=== PATIENT | female | born 1970 | race Asian ===

== ENCOUNTER 2019-06-21 12:57 | Outpatient (CLI) | payer OTHER, SELFPAY ==
[2019-06-21 15:02] LABS: Basophils Percent Auto 0.6 % (0.2-1.2); Eosinophils Absolute Auto 1.3 K/mm3 (0-0.3); Eosinophils Percent Auto 18.3 % (0-4.4); Hematocrit 37.9 % (37.0-47.0); Hemoglobin 11.8 g/dL (12.0-15.0); Immature Granulocyte Absolute 0.01 K/mm3 (0.00-0.031); Immature Granulocyte Percent A 0.1 % (0-0.5); Lymphocytes Absolute Auto 2.55 K/mm3 (0.9-3.2); Lymphocytes Percent Auto 37.1 % (18.3-44.2); Mean Corpuscular HGB Conc 31.1 g/dl (32-36); Mean Corpuscular Hemoglobin 26.1 pg (26-34); Mean Corpuscular Volume 83.8 fl (80-100); Mean Platelet Volume 11.1 fl (7.4-10.4); Monocytes Absolute Auto 0.5 K/mm3 (0.1-0.6); Monocytes Percent Auto 6.6 % (2.6-8.5); Neutrophils Absolute Auto 2.6 K/mm3 (1.3-6.7); Neutrophils Percent Auto 37.3 % (45.5-73.1); Platelet Count Result 328 k/mm3 (150-375); Red Blood Count 4.52 M/mm3 (4.2-5.4); Red Cell Distribution Width 15.8 % (11.5-14.5); White Blood Count 6.9 K/mm3 (4.5-10.0)
[2019-06-25 03:29] LABS: Immunoglobulin E 216 kU/L (<=114)
== END 2019-06-21 12:58 | disposition home or self-care (01) ==
LOC: ANHLAB 12:59
PROVIDERS: PCP Family Medicine; Visit Provider Allergy & Immunology
DX: J45.51 Severe persistent asthma with (acute) exacerbation (principal)
CPT/HCPCS: 36415; 82785; 85025; 86003

== ENCOUNTER → 2019-07-30 16:20 | Outpatient (CLI) | payer OTHER, SELFPAY ==
--- NOTE | ~2019-07-30 | MM_ITS ---
EXAMINATION: MM screening [facility] BI w ryanne HISTORY: Screening mammogram TECHNIQUE: Craniocaudal and mediolateral oblique 3-D tomosynthesis images were obtained and synthetic 2-D images were generated. CAD analysis was submitted and interpreted. COMPARISON: Comparison to multiple prior studies sequentially, with oldest reviewed study dated 04/30. BREAST PARENCHYMAL COMPOSITION: There are scattered areas of fibroglandular density. FINDINGS: There is no evidence of suspicious mass, calcification, or architectural distortion to sugg est malignancy in either breast. There has been no suspicious interval change. IMPRESSION: 1. No mammographic evidence of malignancy. 2. Recommend routine screening mammography in one year. BI-RADS Category 1: Negative Reviewed, dictated and finalized at location A.
== END ==
PROVIDERS: PCP Family Medicine Adolescent Medicine; Visit Provider Nurse Practitioner
DX: Z12.31 Encounter for screening mammogram for malignant neoplasm of breast (principal)
CPT/HCPCS: 77063; 77067

== ENCOUNTER 2020-04-07 08:02 | Outpatient (CLI) | payer OTHER, SELFPAY ==
[2020-04-07 08:25] LABS: Basophils Percent Auto 0.4 % (0.2-1.2); Eosinophils Absolute Auto 0.1 K/mm3 (0-0.3); Eosinophils Percent Auto 1.6 % (0-4.4); Hematocrit 38.1 % (37.0-47.0); Hemoglobin 12.1 g/dL (12.0-15.0); Immature Granulocyte Absolute 0.03 K/mm3 (0.00-0.031); Immature Granulocyte Percent A 0.5 % (0-0.5); Lymphocytes Absolute Auto 2.79 K/mm3 (0.9-3.2); Lymphocytes Percent Auto 48.9 % (18.3-44.2); Mean Corpuscular HGB Conc 31.8 g/dl (32-36); Mean Corpuscular Hemoglobin 26.2 pg (26-34); Mean Corpuscular Volume 82.5 fl (80-100); Mean Platelet Volume 10.2 fl (7.4-10.4); Monocytes Absolute Auto 0.4 K/mm3 (0.1-0.6); Monocytes Percent Auto 7.2 % (2.6-8.5); Neutrophils Absolute Auto 2.4 K/mm3 (1.3-6.7); Neutrophils Percent Auto 41.4 % (45.5-73.1); Platelet Count Result 298 k/mm3 (150-375); Red Blood Count 4.62 M/mm3 (4.2-5.4); Red Cell Distribution Width 15.3 % (11.5-14.5); White Blood Count 5.7 K/mm3 (4.5-10.0)
[2020-04-07 08:29] LABS: Hemoglobin A1C 5.5 % (<5.7)
[2020-04-07 08:34] LABS: Alanine Aminotransferase 147 U/L (4-35); Albumin Level 4.5 g/dL (3.5-5.1); Alkaline Phosphatase 91 U/L (38-126); Anion Gap 9 mmol/L (8-16); Aspartate Amino Transferase 96 U/L (14-36); Bilirubin,Total 0.5 mg/dL (0.2-1.3); Blood Urea Nitrogen 17 mg/dL (7-17); Calcium 9.5 mg/dL (8.4-10.2); Carbon Dioxide 32 mmol/L (22-30); Chloride 100 mmol/L (98-107); Cholesterol 241 mg/dL (0-200); Estimated Glomerular Filt Rate > 60; Glucose 102 mg/dL (65-105); HDL Direct 51 mg/dL; Potassium 4.2 mmol/L (3.4-5.0); Sodium 141 mmol/L (137-145); Triglycerides 128 mg/dL (<150)
[2020-04-07 08:45] LABS: LDL Cholesterol Direct 172 mg/dL
== END 2020-04-07 08:03 | disposition home or self-care (01) ==
PROVIDERS: PCP Family Medicine; Visit Provider Physician Assistant
DX: Z00.00 Encounter for general adult medical examination without abnormal findings (principal); E78.5 Hyperlipidemia, unspecified; R73.01 Impaired fasting glucose
CPT/HCPCS: 36415; 80053; 80061; 83036; 84443; 85025

== ENCOUNTER 2020-04-21 09:10 | Outpatient (CLI) | payer OTHER, SELFPAY ==
--- NOTE | ~2020-04-21 | US_ITS ---
EXAMINATION: US right upper quadrant DATE: 04/21/2020 09:48 INDICATION: Hepatic steatosis. TECHNIQUE: Multiple grayscale and Doppler ultrasound images of the abdomen were obtained. COMPARISON: Abdomen ultrasound 03/06/2017 FINDINGS: The visualized portions of the head and body of the pancreas are normal. There is diffuse h epatic steatosis. There is normal flow in main portal vein. The gallbladder is normal in size. No gal lstones or gallbladder wall thickening. There was no sonographic Gong sign. The common duct is norm al and measures 3 mm. IMPRESSION: 1. Diffuse hepatic steatosis. Reviewed, dictated and finalized at location B. R CONE GRADER
--- NOTE | ~2020-04-21 | XR_ITS ---
EXAMINATION: XR knee RT 2V DATE: 04/21/2020 09:54 INDICATION: Right knee pain. TECHNIQUE: 2 views of right knee were obtained. COMPARISON: None. FINDINGS: Bone alignment is normal. No fracture. There is mild osteoarthritis of medial and patellofe moral compartments characterized by tiny marginal osteophytes. No knee joint effusion. IMPRESSION: 1. Mild right knee osteoarthritis. Reviewed, dictated and finalized at location B. EL PLATER
--- NOTE | ~2020-04-21 | XR_ITS ---
EXAMINATION: XR knee LT 2V DATE: 04/21/2020 09:54 INDICATION: Left knee pain. TECHNIQUE: 2 views of left knee were obtained. COMPARISON: None. FINDINGS: Bone alignment is normal. No fracture. There is mild osteoarthritis of lateral and patellof emoral compartments characterized by tiny marginal osteophytes. No knee joint effusion. IMPRESSION: 1. Mild left knee osteoarthritis. Reviewed, dictated and finalized at location B. CONSULTANT
== END 2020-04-21 09:11 | disposition home or self-care (01) ==
PROVIDERS: PCP Family Medicine; Visit Provider Family Medicine
DX: K76.0 Fatty (change of) liver, not elsewhere classified (principal); M17.0 Bilateral primary osteoarthritis of knee
CPT/HCPCS: 73560; 76705

== ENCOUNTER 2020-06-09 09:00 | Outpatient (RCR) | payer OTHER, SELFPAY ==
--- NOTE | 2020-05-11 15:19 | PTOPEVAL ---
PHYSICAL THERAPY EVALUATION AND PLAN OF CARE Thank you for referring Reji Malone to [facility].? The patient is scheduled to be seen for therapy? 1-2x/week for 4 weeks. Please review, sign, date and return this plan of care CT. I agree with and certify that the following plan of care is medically necessary. Referring Physician Date Attending Provider: JCARLOS Lai Evaluation Outpatient Past Medical History Cardiovascular History Hx Hypercholesterolemia Yes Respiratory History Hx Asthma Yes Diagnosis left shoulder pain Onset several months ago Subjective Information Left shoulder pain for several Query Text:As Reported By Patient/ months that started as a dull Family pain and worsened over time. She did have a cortisone injection that has helped with the symptoms significantly. Reports that the main pain is near deltoid insertion and a little posterior, but the shoulder and up to the neck with get stiff throughout the day. Prior Level of Function Activity Level (Last 3 Months) Hand Dominance Right Self Report Pain Assessment Left Shoulder(s) Reported Pain Level 2 Pain Description Aching Pain Score Pain Score 2: Self Report Interventions Used Interventions Used By Clinicians Exercise,Heat Pain Relief Interventions Used By Medication Patient Upper Extremity Range of Motion Scapular/ Shoulder Range of Motion Left Reason Not Measured WNL/Right Shoulder Flexion - Active 150 Shoulder Abduction - Active 145 Shoulder Medial Rotation - Active T12 Query Text:Reach Behind the Back Scapular/Shoulder Range of Motion describes a tightness through Comments the periscapular muscles with ROM Upper Extremity Muscle Strength Testing Scapular/Shoulder Left Scapular Retraction - Middle Trapezius 3 Fair Scapular Retraction - Lower Trapezius 3 Fair Shoulder Flexion Strength 4 Good Shoulder Abduction Strength 4 Good Shoulder Medial Rotation Strength 4+ Good + Shoulder Lateral Rotation Strength 4+ Good + Posture Posture Sitting Position Thoracic Spine Posture Increased Kyphosis Lumbar Spine Posture Neutral Shoulder Posture (L) Rounded,(R) Rounded,(L) Forward,(R) Forward Scapula Posture (L) Protracted,(R) Protracted Palpation hypersensitivity noted to left upper trapezius,
--- NOTE | 2020-06-09 09:23 | PTOPEVAL ---
PHYSICAL THERAPY DISCHARGE NOTE Thank you for referring Reji Malone to [facility].? Please review, sign, date and return this plan of care CT. I agree with and certify that the following plan of care is medically necessary. Referring Physician Date Attending Provider: JCARLOS Lai Discharge Diagnosis left shoulder pain Onset several months ago Subjective Information Reports she is feeling really Query Text:As Reported By Patient/ good over the last several Family weeks. Reporting no pain. Sleeping well. Pain Score Pain Score 0: Self Report Interventions Used Interventions Used By Clinicians Exercise,Heat Pain Relief Interventions Used By Exercise Patient Upper Extremity Range of Motion Scapular/ Shoulder Range of Motion Left Reason Not Measured WNL/Right Shoulder Flexion - Active 160 Shoulder Abduction - Active 162 Shoulder Medial Rotation - Active T6 Shoulder External rotation - Active 86 Upper Extremity Muscle Strength Testing Scapular/Shoulder Left Scapular Retraction - Middle Trapezius 4- Good - Scapular Retraction - Lower Trapezius 4- Good - Shoulder Flexion Strength 5 Normal Shoulder Abduction Strength 5 Normal Shoulder Medial Rotation Strength 5 Normal Shoulder Lateral Rotation Strength 5 Normal Posture Thoracic Spine Posture Increased Kyphosis Lumbar Spine Posture Neutral Shoulder Posture Neutral Scapula Posture (L) Neutral,(R) Neutral PT Clinical Summary Reji is a 49 yo female presenting to outpatient physical therapy treated for left shoulder pain consistent with tendonitis. She demonstrates normal strength and ROM today and is consistent with HEP. I recommend discharge from PT at this time. PT Services Indicated No Rehabilitation Potential Excellent Patient/Caregiver's Personal Goals for decrease pain Rehabilitation Potential Barriers to Goal Achievements None Support Requirements For Optimal None [place] Patient/Caregiver Informed of Benefits/ Yes Risks of Rehabilitation Patient/Caregiver Participated in Plan Yes of Care Patient/Caregiver Agreed with Problem Yes List/POC/Goals
== END 2020-06-09 10:29 | disposition home or self-care (01) ==
LOC: ANHPT 09:00
PROVIDERS: PCP Family Medicine; Visit Provider Physician Assistant Surgical
DX: M25.512 Pain in left shoulder (principal)
CPT/HCPCS: 97110; 97140; 97161

== ENCOUNTER 2020-07-15 13:36 | Outpatient (CLI) | payer OTHER, SELFPAY ==
--- NOTE | 2020-07-16 17:04 | P.PCNPFT_ITS ---
PFT Interpretation This is a pulmonary function test with pre and post-bronchodilator spirometry, plethysmography and diffusing capacity. The test was performed and results interpreted in accordance with the 2019 and 2005 ATS/ERS Task Force guidelines respectively using the Global Lung Function Initiative-2012 reference equations. Quality of the pre bronchodilator spi rometry maneuver was Grade A and post bronchodilator spirometry maneuver was Grade A. Findings: Spirometry: The contour of the inspiratory and expiratory flow tracing are normal. The pre bronchodilator FVC is 2.41 L, 72% predicted. The pre bronchodilator FEV1 is 1.79 L, 66% predicted. The FEV1: FVC ratio 74%. The post bronchodilator FVC is 2.42 L, representing no change. The post bronchodi lator FEV1 is 1.86 L, representing a 4% increase. Plethysmography: The total lung capacity is 3.65 L, 75% predicted. The functional residual capacity is 1.62 L, 59% predicted. The residual volume is 1.19 L, 69% predicted. Diffusing capacity: The absolute diffusion capacity is 11.1, 50% predicted. The diffusing capacity corrected for alveolar volume is 4.82, 103% predicted. Impression: There is a moderately restrictive ventilatory abnormality. The spirometry is normal without evidence of an obstructive abnormality. There is no significant improvement after inhaling a single dose of albuterol. The absolute diffusing capacity is moderately decreased and normalizes when corrected for alveolar volume. There are no prior studies for comparison
== END 2020-07-15 13:37 | disposition home or self-care (01) ==
PROVIDERS: PCP Family Medicine; Visit Provider Allergy & Immunology
DX: R06.02 Shortness of breath (principal); J45.51 Severe persistent asthma with (acute) exacerbation
CPT/HCPCS: 94060; 94726; 94729

== ENCOUNTER → 2020-07-31 16:19 | Outpatient (CLI) | payer OTHER, SELFPAY ==
--- NOTE | ~2020-07-31 | MM_ITS ---
EXAMINATION: MM screening [facility] BI w ryanne HISTORY: Screening mammogram TECHNIQUE: Craniocaudal and mediolateral oblique 3-D tomosynthesis images were obtained and synthetic 2-D images were generated. CAD analysis was submitted and interpreted. COMPARISON: 07/30/2019, July 10, 2018, July 04, 2017 bilateral digital screening mammogram exa minations BREAST PARENCHYMAL COMPOSITION: There are scattered areas of fibroglandular density. FINDINGS: There is no evidence of suspicious mass, calcification, or architectural distortion to sugg est malignancy in either breast. There has been no suspicious interval change. IMPRESSION: 1. No mammographic evidence of malignancy. 2. Recommend routine screening mammography in one year. BI-RADS Category 1: Negative Reviewed, dictated and finalized at location A.
== END ==
PROVIDERS: Visit Provider Obstetrics & Gynecology Gynecology
DX: Z12.31 Encounter for screening mammogram for malignant neoplasm of breast (principal)
CPT/HCPCS: 77063; 77067

== ENCOUNTER 2021-06-11 15:05 | Outpatient (CLI) | payer OTHER, SELFPAY ==
--- NOTE | ~2021-06-11 | US_ITS ---
EXAMINATION: US pelvic complete w TV DATE: 06/11/2021 15:47 INDICATION: Uterine hypertrophy. Patient is postmenopausal. Comparison:04/14/2016 TECHNIQUE: Multiple transabdominal and endovaginal sonographic images of the pelvis performed. FINDINGS: The uterus measures 8.5 x 3.1 x 3.2 cm. The endometrial complex measures 4 mm. There is tra ce fluid in the endometrium. The right ovary measures 1.9 x 1.9 x 1.3 cm and the left ovary measures 1.8 x 1.2 x 1.5 cm. There ar e small follicles in each ovary. Normal doppler signal in both ovaries. There is no free fluid in the pelvis. There are no abnormal masses seen on either side. IMPRESSION: 1. Mild endometrial prominence measuring 4 mm with fluid in the endometrium. Considerations in a post menopausal female includes endometrial hyperplasia, polyp and carcinoma. Biopsy is recommended. Reviewed, dictated and finalized at location B. DIGGER IMPRESSION: 1. Mild endometrial prominence measuring 4 mm with fluid in the endometrium. Co nsiderations in a postmenopausal female includes endometrial hyperplasia, polyp and carcinoma. Biopsy is recommended.
== END 2021-06-11 15:06 | disposition home or self-care (01) ==
LOC: ANHIMG 15:06
PROVIDERS: PCP Family Medicine; Visit Provider Nurse Practitioner
DX: N85.2 Hypertrophy of uterus (principal)
CPT/HCPCS: 76830; 76856

== ENCOUNTER 2021-06-24 07:55 | Outpatient (CLI) | payer OTHER, SELFPAY ==
[2021-06-24 09:15] LABS: INR 1.1; Prothrombin Time 13.8 Seconds (11.1-14.7)
[2021-06-24 09:16] LABS: Partial Thromboplastin Time 32.6 SECONDS (22.3-36.8)
[2021-06-24 09:17] LABS: Anion Gap 9 mmol/L (8-16); Blood Urea Nitrogen 16 mg/dL (7-17); Calcium 9.5 mg/dL (8.4-10.2); Carbon Dioxide 25 mmol/L (22-30); Chloride 104 mmol/L (98-107); Estimated Glomerular Filt Rate 59; Glucose 131 mg/dL (65-110); Potassium 3.8 mmol/L (3.4-5.0); Sodium 138 mmol/L (137-145)
== END 2021-06-24 07:56 | disposition home or self-care (01) ==
LOC: ANHSURGERY 07:58
PROVIDERS: Anesthesiology; PCP Family Medicine; Visit Provider Obstetrics & Gynecology Gynecology
DX: K76.0 Fatty (change of) liver, not elsewhere classified (principal)
CPT/HCPCS: 36415; 80048; 85610; 85730

== ENCOUNTER 2021-06-28 01:44 | Day surgery (SDC) | payer OTHER, SELFPAY ==
[2021-06-23 09:49] VITALS: BMI 28.5
--- NOTE | 2021-06-23 09:50 | PC.NURSE ---
Report to the Outpatient Waiting Room, entrance under the green pavilion located off [facility], at time ___0900____ on date __06/28/21 . OR Time: ___1099 . - You will be asked a series of questions to screen for COVID 19 for your protection. - A mask is required within the hospital. - No visitors are allowed at this time. Preoperative COVID Testing Requirements: No COVID Test needed if: (proof is required; if not received patient will have Rapid Test prior to entry) - Patient has received COVID Vaccine at least 14 days prior to procedure date or - Patient has positive COVID test result within last 90 days of surgery date. COVID Test needed if above criteria is not met If not COVID vaccinated a COVID test must be conducted within 72 hours of surgery and patient is asked to isolate self from time of testing until procedure. You will go to the [employer] [facility] for your COVID testing. The [employer] [facility] Testing site is located at the corner of [address] [facility]. You will only be called if COVID results are positive and your surgeon may reschedule your elective surgery date. Patients may have clear liquids (water, carbonated beverages, clear teas, apple juice) until 3 hours prior to surgery with a maximum of 20 ounces. STOP ALL FLUIDS BY 8:00 AM DAY OF SURGERY - No food from midnight until time of surgery - Infants may have breast milk until 4 hours before surgery, infant formula 6 hours prior to surgery. - Children will be allowed to drink immediately following surgery. If applicable, please bring a bottle or sippy cup to assist with drinking. Juice, water, soda, and popsicles are readily available. For infants on formula, please bring formula the day of surgery. Pacifiers are allowed. Take the following medications with a SIP of water the morning of surgery: FLUOXETINE EVENING BEFORE Medications to discontinue per physician N/A Date to take last dose N/A Please no make-up, nail yi, hairspray, perfume, deodorant, or body powder the day of surgery. No jewelry (including any body piercings) or valuables the day of surgery, leave them at home. Please take a shower or bath the night before, or the morning of, surgery with an antibacterial soap. Wear comfortable, loose fitting clothing. Children are encouraged to wear pajamas. - Jewelry must be removed prior to entering the operating room. Rings and piercings that are not removed may be cut off. - The hospital will not accept responsibility for valuables. - Please leave all valuables, including medications, at home the day of surgery. If you are going home after surgery, a licensed driver guard must drive you home. - NO public transportation without another adult. - We recommend that an adult stay with you for 24 hours following discharge. - We also recommend that you do not drive, make important decision, drink alcoholic beverages, or take any drugs that were not prescribed by your health care provider for at least 24 hours after your discharge time. For Pediatric surgeries, we recommend two adults accompany the child home (only one inside the building at this time). Follow any additional instructions given to you from your surgeon. Telephone instructions given to ___LENO and asked if any additional questions and then verbalized understanding. Patient advised to call surgeon office or pre surgery nurse liaison [phone] if any additional questions.
--- NOTE | 2021-06-28 08:02 | WPDHPUPDATE1 ---
History and Physical Update Update Date/Time: 06/28/21 08:02 History and Physical has been reviewed, including an updated exam of the patient. There are NO changes in the patient's condition. Risks, benefits, and alternatives have been discussed and questions answered. Patient agrees to proceed with procedure.
--- NOTE | 2021-06-28 08:02 | PM.HPGS ---
History of Present Illness History of Present Illness Consent: Risks, benefits, and alternatives have been discussed and questions answered. Patient agrees to proceed with procedure. Chief complaint: abn ultrasound Narrative: Reji Malone is a 50 year old female who complained of increased pelvic pressure at her annual exam. Pelvic ultrasound was performed and did reveal a 4mm area of fluid within the endometrium. Patient denies bleeding. Is recommended to further evaluate with D&C hysteroscopy. Risks of infection, bleeding, perforation, and inability to enter the cavity were reviewed. Patient has been on Cytotec for 1 week prior to the procedure. Patient voices understanding and agrees to proceed. Possible pathology was also discussed. Review of Systems Review of Systems: not repeated day of surgery; patient states no changes in status Constitutional: Constitutional: Reports night sweats (And top flashes) PMFSH Past Medical History Medical History (Updated 06/28/21 @ 08:05 by Lula Lees MD) Depression GERD (gastroesophageal reflux disease) HLD (hyperlipidemia) Steatosis of liver Surgical History Surgical History (Updated 06/28/21 @ 08:04 by Lula Lees MD) H/O sinus surgery Hx of reduction mammoplasty Status post delivery x 2 Family History Family History Grandparent Family history of malignant neoplasm of breast Mother Family history of malignant neoplasm of breast in first degree relative Hypertension Father Family history of type 2 diabetes mellitus Hypertension Family history of diabetes mellitus in first degree relative Family history of coronary artery disease Other Family history of throat cancer Social History Social History Smoking status: Never smoker Second hand tobacco smoke exposure: No Alcohol intake: never Substance use: never Substance use type: does not use Living arrangements: with family Gender identity (if verbalized by the patient): Female Spiritual care concerns: No Meds Home Medications and Allergies Home Medications Medication Instructions Recorded Confirmed Type albuterol sulfate 90 mcg/actuation 1 inh INHALATION Q4H PRN #8.5 g 04/07/20 06/23/21 Rx aerosol inhaler fluoxetine 20 mg capsule 20 mg PO DAILY #90 cap 10/05/20 06/23/21 Rx benralizumab [Fasenra] 30 mg SUBCUT 06/23/21 History Allergies Allergy/AdvReac Type Severity Reaction Status Date / Time No Known Allergies Allergy Verified 06/23/21 09:36 Exam Const: General: healthy appearing and alert Orientation/consciousness: patient oriented x3 Resp: Effort & Inspection: normal respiratory effort Auscultation: clear to auscultation bilaterally Cardio: Rate: regular rate Rhythm: regular rhythm GI: GI Palp: Yes Soft to palpation, No Tenderness to palpation present (GI) and No Palpable mass present : External Female Exam: normal external appearance Speculum Exam - Vagina: normal appearance of the vagina and normal vaginal discharge Speculum Exam - Cervix: normal appearance of the cervix Bimanual exam- vagina & uterus: uterine size normal and consistency normal Bimanual Exam- Adnexa, other: normal adnexae and No adnexal tenderness Neuro: General: patient oriented x3 Assessment and Plan Assessment and plan (1) Abnormal pelvic ultrasound: Code(s): R93.89 - Abnormal findings on diagnostic imaging of other specified body structures Status: Acute Assessment and Plan: Patient without bleeding. Pocket of fluid on pelvic ultrasound in the endometrial cavity. Plan is to proceed with D&C hysteroscopy to attempt to locate the pocket of fluid and perform biopsies.
[2021-06-28] MEDS: LACTATED RINGERS 1,000 ML 30 ML IV CONT (09:00)
[2021-06-28] MEDS: ACETAMINOPHEN 500 MG TABLET 1000 MG PO (09:32)
[2021-06-28] MEDS: KETOROLAC 30 MG/ML VIAL (*BKC) IV PUSH (10:27)
--- NOTE | 2021-06-28 10:41 | W.PM.PROC2 ---
Procedure Note - Detailed Date of Procedure 06/28/21 Pre-op Diagnosis abnormal ultrasound Post-op Diagnosis same Procedure Performed D&C hysteroscopy Surgeon Lula Lees MD Anesthesia MAC and local Findings Cervix stenotic. Endometrium with scarring. No bulging garcia noted. Description of Procedure The patient was taken to the operating room and placed under anesthesia in the dorsal lithotomy position. She was prepped and draped in the usual sterile fashion. [place] speculum was placed in the vagina and the cervix is grasped on the anterior lip with a tenaculum. The cervix is injected with 1% lidocaine in each quadrant. The uterus is sounded to 7cm. There is significant stenosis at the internal os. The cervix is serially dilated with difficulty to an 8 Hegar. The diagnostic hysteroscope was placed. Extensive scar tissue in the cervix and lower uterine segment are noted. The upper endometrium appears consistent with ablation. There are no garcia that are bulging. All surfaces appears smooth. The hysteroscope is removed. The medium sharp curette is used to sharply curette the endometrium until a good uterine cry was noted in all areas. Minimal materials obtained consistent with the ablation effect noted. All instruments are removed. Patient is awakened from anesthesia in stable condition. Sponge, needle, and instrument counts are correct per the OR staff. Estimated Blood Loss 5 Drains No Packing No Pathology yes (Endometrial curettings) Complications No immediate complications Condition stable Disposition PACU
[2021-06-28 10:48] VITALS: BP 107/58; PULSE 68; RESP 16; O2SAT 99
[2021-06-28 11:20] VITALS: BP 103/64; PULSE 59; RESP 16
[2021-06-28 11:40] VITALS: BP 107/64; PULSE 51; RESP 16
== END 2021-06-28 11:48 | disposition home or self-care (01) ==
PROVIDERS: PCP Family Medicine; Visit Provider Obstetrics & Gynecology Gynecology
PROC: 0U5B8ZZ Destruction of Endometrium, Via Natural or Artificial Opening Endoscopic (ICD-10-PCS; CPT 58563; principal; 2021-06-28 11:00)
DX: N85.8 Other specified noninflammatory disorders of uterus (principal); K21.9 Gastro-esophageal reflux disease without esophagitis; F32.9 Major depressive disorder, single episode, unspecified; E78.5 Hyperlipidemia, unspecified; Z79.51 Long term (current) use of inhaled steroids
CPT/HCPCS: 58558; 88305; A9270; J1885; J2250; J2704; J3010; J7030; J7120

== ENCOUNTER → 2021-08-03 10:33 | Outpatient (CLI) | payer OTHER, SELFPAY ==
--- NOTE | ~2021-08-03 | MM_ITS ---
EXAMINATION: MM screening [facility] BI w ryanne HISTORY: Screening mammogram TECHNIQUE: Craniocaudal and mediolateral oblique 3-D tomosynthesis images were obtained and synthetic 2-D images were generated. CAD analysis was submitted and interpreted. COMPARISON: 07/31/2020, 07/30/2019, 07/10/2018, 07/04/2017 bilateral screening mammogram examinations BREAST PARENCHYMAL COMPOSITION: The breasts are almost entirely fatty. FINDINGS: There is no evidence of suspicious mass, calcification, or architectural distortion to sugg est malignancy in either breast. There has been no suspicious interval change. IMPRESSION: 1. No mammographic evidence of malignancy. 2. Recommend routine screening mammography in one year. BI-RADS Category 1: Negative Reviewed, dictated and finalized at location A.
== END ==
PROVIDERS: PCP Family Medicine; Visit Provider Nurse Practitioner
DX: Z12.31 Encounter for screening mammogram for malignant neoplasm of breast (principal)
CPT/HCPCS: 77063; 77067

== ENCOUNTER 2021-11-12 06:11 | Outpatient (CLI) | payer OTHER, SELFPAY ==
[2021-11-12 06:29] LABS: Hematocrit 35.9 % (37.0-47.0); Hemoglobin 11.6 g/dL (12.0-15.0); Mean Corpuscular HGB Conc 32.3 g/dl (32-36); Mean Corpuscular Hemoglobin 26.3 pg (26-34); Mean Corpuscular Volume 81.4 fl (80-100); Mean Platelet Volume 10.7 fl (7.4-10.4); Platelet Count Result 321 k/mm3 (150-375); Red Blood Count 4.41 M/mm3 (4.2-5.4); Red Cell Distribution Width 15.1 % (11.5-14.5); White Blood Count 6.2 K/mm3 (4.5-10.0)
[2021-11-12 06:38] LABS: Appearance Urine Slightly Cloudy (Clear); Bilirubin Urine Negative (Negative); Blood Urine Trace-lysed (Negative); Color Urine Yellow (Yellow); Glucose Urine UA Negative (Negative); Ketones Urine Negative (Negative); Leukocyte Esterase Ur 1+ LEU/UL (NEGATIVE); Nitrate Urine Negative (Negative); Protein Urine Negative (Negative); Urobilinogen Urine 0.2 mg/dL (<2.0); pH Urine 5.5 (5.0-9.0)
[2021-11-12 06:40] LABS: Squamous Epithelial Cell Urine Occasional /hpf (Few)
[2021-11-12 06:43] LABS: Add Urine Microscopic? YES
[2021-11-12 06:57] LABS: Alanine Aminotransferase 82 U/L (6-35); Albumin Level 4.2 g/dL (3.5-5.1); Alkaline Phosphatase 88 U/L (38-126); Anion Gap 8 mmol/L (8-16); Aspartate Amino Transferase 61 U/L (14-36); Bilirubin,Total 0.2 mg/dL (0.2-1.3); Blood Urea Nitrogen 17 mg/dL (7-17); Calcium 8.9 mg/dL (8.4-10.2); Carbon Dioxide 30 mmol/L (22-30); Chloride 103 mmol/L (98-107); Cholesterol 228 mg/dL (0-200); Estimated Glomerular Filt Rate > 60; Glucose 106 mg/dL (65-110); HDL Direct 49 mg/dL; Sodium 141 mmol/L (137-145); Triglycerides 127 mg/dL (<150)
[2021-11-12 07:09] LABS: LDL Cholesterol Direct 137 mg/dL
== END 2021-11-12 06:12 | disposition home or self-care (01) ==
LOC: ANHOBOP 06:13
PROVIDERS: PCP Family Medicine; Visit Provider Family Medicine
DX: Z00.00 Encounter for general adult medical examination without abnormal findings (principal); E78.5 Hyperlipidemia, unspecified; K76.0 Fatty (change of) liver, not elsewhere classified
CPT/HCPCS: 36415; 80053; 80061; 81001; 84443; 85027

== ENCOUNTER 2022-05-24 17:33 | Outpatient (CLI) | payer OTHER, SELFPAY ==
[2022-05-24 18:12] LABS: Basophils Percent Auto 0.1 % (0.2-1.2); Hematocrit 37.9 % (37.0-47.0); Immature Granulocyte Absolute 0.02 K/mm3 (0.00-0.031); Immature Granulocyte Percent A 0.2 % (0-0.5); Lymphocytes Percent Auto 36.9 % (18.3-44.2); Mean Corpuscular HGB Conc 31.7 g/dl (32-36); Mean Platelet Volume 10.5 fl (7.4-10.4); Monocytes Absolute Auto 0.5 K/mm3 (0.1-0.6); Monocytes Percent Auto 5.7 % (2.6-8.5); Neutrophils Absolute Auto 5.3 K/mm3 (1.3-6.7); Neutrophils Percent Auto 57.1 % (45.5-73.1); Platelet Count Result 349 k/mm3 (150-375); Red Blood Count 4.62 M/mm3 (4.2-5.4); Red Cell Distribution Width 16.3 % (11.5-14.5); White Blood Count 9.2 K/mm3 (4.5-10.0)
[2022-05-24 18:24] LABS: Alanine Aminotransferase 62 U/L (6-35); Albumin Level 4.5 g/dL (3.5-5.1); Alkaline Phosphatase 91 U/L (38-126); Anion Gap 9 mmol/L (8-16); Aspartate Amino Transferase 49 U/L (14-36); Bilirubin,Total 0.3 mg/dL (0.2-1.3); Blood Urea Nitrogen 13 mg/dL (7-17); Calcium 9.4 mg/dL (8.4-10.2); Carbon Dioxide 27 mmol/L (22-30); Chloride 100 mmol/L (98-107); Estimated Glomerular Filt Rate > 60; Glucose 130 mg/dL (65-110); Potassium 3.8 mmol/L (3.4-5.0); Sodium 136 mmol/L (137-145)
== END 2022-05-24 17:34 | disposition home or self-care (01) ==
LOC: ANHOBOP 17:35
PROVIDERS: PCP Family Medicine; Visit Provider Family Medicine
DX: E78.5 Hyperlipidemia, unspecified (principal); K76.0 Fatty (change of) liver, not elsewhere classified; L29.9 Pruritus, unspecified; R53.83 Other fatigue
CPT/HCPCS: 36415; 80048; 80076; 85025

== ENCOUNTER 2022-06-09 08:01 | Outpatient (CLI) | payer OTHER, SELFPAY ==
--- NOTE | ~2022-06-09 | US_ITS ---
Limited Abdominal Sonogram: Real-time sonographic imaging of the right upper quadrant was performed. Clinical History: Fatty liver Findings: The liver appears mildly echogenic, with no evidence of mass lesion or bile duct dilatatio n. Main portal vein demonstrates normal direction of flow. The gallbladder is well distended, and samantha ears normal with no evidence of gallstone or wall thickening. The common bile duct measures 4 mm. Th e visualized pancreas, aorta, and IVC are unremarkable. Impression: Diffuse fatty infiltration of the liver. Reviewed, dictated and finalized at location M. TANNER Impression: Diffuse fatty infiltration of the liver.
== END 2022-06-09 08:02 | disposition home or self-care (01) ==
PROVIDERS: PCP Family Medicine; Visit Provider Family Medicine
DX: K76.0 Fatty (change of) liver, not elsewhere classified (principal)
CPT/HCPCS: 76705

== ENCOUNTER → 2022-11-26 11:24 | Outpatient (CLI) | payer OTHER, SELFPAY ==
--- NOTE | ~2022-11-26 | MM_ITS ---
EXAMINATION: MM screening [facility] BI w ryanne HISTORY: Screening mammogram TECHNIQUE: Craniocaudal and mediolateral oblique 3-D tomosynthesis images were obtained and synthetic 2-D images were generated. CAD analysis was submitted and interpreted. COMPARISON: 08/03/2021, 07/31/2020, 07/30/2019 bilateral screening mammogram examinations BREAST PARENCHYMAL COMPOSITION: The breasts are almost entirely fatty. FINDINGS: There is no evidence of suspicious mass, calcification, or architectural distortion to sugg est malignancy in either breast. There has been no suspicious interval change. IMPRESSION: 1. No mammographic evidence of malignancy. 2. Recommend routine screening mammography in one year. BI-RADS Category 1: Negative Reviewed, dictated and finalized at location A.
== END ==
PROVIDERS: PCP Nurse Practitioner; Visit Provider Nurse Practitioner
DX: Z12.31 Encounter for screening mammogram for malignant neoplasm of breast (principal)
CPT/HCPCS: 77063; 77067

== ENCOUNTER 2022-12-07 09:09 | Outpatient (CLI) | payer OTHER, SELFPAY ==
[2022-12-07 09:46] LABS: Hematocrit 37.4 % (37.0-47.0); Hemoglobin 11.6 g/dL (12.0-15.0); Mean Corpuscular Hemoglobin 26.1 pg (26-34); Platelet Count Result 320 k/mm3 (150-375); Red Blood Count 4.45 M/mm3 (4.2-5.4); Red Cell Distribution Width 15.2 % (11.5-14.5)
[2022-12-07 09:58] LABS: Alanine Aminotransferase 57 U/L (6-35); Albumin Level 4.5 g/dL (3.5-5.1); Alkaline Phosphatase 72 U/L (38-126); Anion Gap 11 mmol/L (8-16); Aspartate Amino Transferase 56 U/L (14-36); Bilirubin,Total 0.5 mg/dL (0.2-1.3); Blood Urea Nitrogen 19 mg/dL (7-17); Calcium 9.7 mg/dL (8.4-10.2); Carbon Dioxide 29 mmol/L (22-30); Chloride 102 mmol/L (98-107); Cholesterol 264 mg/dL (0-200); Estimated Glomerular Filt Rate > 60; Glucose 101 mg/dL (65-110); HDL Direct 53 mg/dL; Potassium 3.3 mmol/L (3.4-5.0); Sodium 142 mmol/L (137-145); Triglycerides 98 mg/dL (<150)
[2022-12-07 10:14] LABS: LDL Cholesterol Direct 162 mg/dL
[2022-12-07 10:28] LABS: Appearance Urine Cloudy (Clear); Bacteria Urine Rare /hpf; Bilirubin Urine Negative (Negative); Blood Urine Negative (Negative); Color Urine Yellow (Yellow); Glucose Urine UA Negative (Negative); Ketones Urine Negative (Negative); Leukocyte Esterase Ur Trace LEU/UL (NEGATIVE); Need Manual Microscopic Reviewed; Nitrate Urine Negative (Negative); Non Pathogenic Casts 0-2; Protein Urine Trace mg/dL (Negative); Specific Grav Ur 1.029 (1.001-1.035); Squamous Epithelial Cell Urine Few /hpf (Few); WBC Urine 0-5 /hpf (0-3); pH Urine 5.5 (5.0-9.0)
[2022-12-07 10:40] LABS: Add Urine Microscopic? YES
[2022-12-07 10:46] LABS: Hemoglobin A1C 5.9 % (<5.7)
== END 2022-12-07 09:10 | disposition home or self-care (01) ==
LOC: ANHOBOP 09:12
PROVIDERS: PCP Nurse Practitioner; Visit Provider Physician Assistant
DX: Z00.00 Encounter for general adult medical examination without abnormal findings (principal); K76.0 Fatty (change of) liver, not elsewhere classified; E78.5 Hyperlipidemia, unspecified; R03.0 Elevated blood-pressure reading, without diagnosis of hypertension; R73.01 Impaired fasting glucose
CPT/HCPCS: 36415; 80053; 80061; 81001; 83036; 84443; 85027

== ENCOUNTER 2023-03-15 15:02 | Outpatient (CLI) | payer OTHER, SELFPAY ==
--- NOTE | ~2023-03-15 | XR_ITS ---
EXAM: XR knee RT 3V, XR knee LT 3V DATE: 03/15/2023 15:21 HISTORY: CHRONIC PAIN IN KNEE, NO INJURY . COMPARISON: 04/21/2020. FINDINGS: Normal mineralization. No fracture or dislocation. No lytic or blastic lesion. Mild bilate ral medial joint space narrowing. Mild bilateral tricompartmental osteophytosis. No erosion or perios teal change. Soft tissues within normal limits. IMPRESSION: Mild tricompartmental arthritis of the knees. Reviewed, dictated and finalized at location K. IMPRESSION: Mild tricompartmental arthritis of the knees.
== END 2023-03-15 15:03 | disposition home or self-care (01) ==
PROVIDERS: PCP Family Medicine; Visit Provider Family Medicine
DX: M17.0 Bilateral primary osteoarthritis of knee (principal)
CPT/HCPCS: 73562

== ENCOUNTER 2023-06-14 16:41 | Outpatient (CLI) | payer OTHER, SELFPAY ==
--- NOTE | 2023-06-14 | ECG_ITS ---
Measurements Intervals [place] Rate: 72 P: 4 HI: 121 QRS: 44 QRSD: 75 T: 44 QT: 398 QTc: 437 Interpretive Statements SINUS RHYTHM NORMAL ECG NO PREVIOUS ECG AVAILABLE FOR COMPARISON Electronically Signed On 06-14-2023 21:06:00 PICKER/PULLER by Rivera Rm D.O.
== END 2023-06-14 16:42 | disposition home or self-care (01) ==
LOC: ANHOUTPT 16:44
PROVIDERS: PCP Family Medicine; Visit Provider Podiatrist Foot & Ankle Surgery
DX: R03.0 Elevated blood-pressure reading, without diagnosis of hypertension (principal)
CPT/HCPCS: 93005

== ENCOUNTER 2023-07-24 01:52 | Day surgery (SDC) | payer OTHER, SELFPAY ==
[2023-07-18 14:16] VITALS: BMI 28.5
--- NOTE | 2023-07-18 14:22 | PC.NURSE ---
Report to the Outpatient Waiting Room, entrance under the green pavilion located off [facility], at time _0830 on date 07/24/23 . Planned Procedure Time: _1030 . Time changes happen often and if your time is changed the preop area will call you the afternoon before. - You and your visitor will be asked to self-screen and do not enter if you have any COVID symptoms. - A mask is optional within the hospital at this time. Patients may have clear liquids (water, carbonated beverages, clear teas, apple juice) until 3 hours prior to surgery with a maximum of 20 ounces. - No food from midnight until time of surgery Take the following medications with a SIP of water the morning of surgery: ___FLUOXETINE DO NOT STOP ANY OF YOUR OTHER PRESCRIPTION MEDICATIONS PRIOR TO SURGERY ?EXCEPT THE FOLLOWING Medications to discontinue per physician NONE Date to take last dose__NONE Please no make-up, nail nepali, hairspray, perfume, deodorant, or body powder the day of surgery. No jewelry (including any body piercings) or valuables the day of surgery, leave them at home. Please take a shower or bath the night before, or the morning of, surgery with an antibacterial soap. Wear comfortable, loose fitting clothing. Children are encouraged to wear pajamas. - Jewelry must be removed prior to entering the operating room. Rings and piercings that are not removed may be cut off. - The hospital will not accept responsibility for valuables. - Please leave all valuables, including medications, at home the day of surgery. If you are going home after surgery, a licensed truck driver teamster must drive you home. - NO public transportation without another adult if you receive anesthesia. - We recommend that an adult stay with you for 24 hours following discharge. - We also recommend that you do not drive, make important decision, drink alcoholic beverages, or take any drugs that were not prescribed by your health care provider for at least 24 hours after your discharge time. Follow any additional instructions given to you from your surgeon. If you or anyone in your household have experienced Covid symptoms in the past week, please notify your surgeon or the nurse liaison at the phone number below for possible testing. Telephone instructions given to __FAZILA and asked if any additional questions and then verbalized understanding. Patient advised to call surgeon office or pre surgery nurse liaison [phone] if any additional questions.
--- NOTE | 2023-07-24 08:18 | WPDANESEPPF ---
Anes - Initial Pre Proc Eval Procedure: Operation Date: 07/24/23 10:30 Proposed Procedures p Exostectomy Lateral Fourth Right Toe - Felix Aguilar DPM Date/Time: 07/24/23 08:18 Surgeon: Felix Aguilar DPM Pre Op Diagnosis: osteophyte right foot Patient Data Age: 52 Gender: F Height: 1.6 m Weight: 73 kg Allergies Allergy/AdvReac Type Severity Reaction Status Date / Time No Known Allergies Allergy Verified 07/24/23 08:46 Home Medications Medication Instructions Recorded Confirmed Type albuterol sulfate 90 mcg/actuation 1 inh inhalation Q4H PRN shortness 04/07/20 07/18/23 Rx aerosol inhaler (ProAir HFA) of breath or wheezing #8.5 grams benralizumab 30 mg/mL subcutaneous See Rx Instructions .Route .COMPLEX 06/23/21 07/24/23 History syringe (Fasenra) omeprazole 40 mg capsule,delayed 40 mg PO DAILY #30 caps 05/24/22 07/24/23 Rx release fluoxetine 20 mg capsule 20 mg PO DAILY #90 caps 10/24/22 07/24/23 Rx Patient hx anesthesia problems: none Family hx anesthesia problems: none Results Review: All pre-operative results and documents have been reviewed as part of the pre-operative evaluation. ON LICENSE OF [facility] Past Medical History Medical History (Updated 07/24/23 @ 08:18 by Alli Hurtado DO) Asthma Depression GERD (gastroesophageal reflux disease) GERD (gastroesophageal reflux disease) HLD (hyperlipidemia) Steatosis of liver Surgical History Surgical History H/O sinus surgery Hx of reduction mammoplasty Status post delivery x 2 Family History Family History Grandparent Family history of malignant neoplasm of breast Mother Family history of malignant neoplasm of breast in first degree relative Hypertension Father Family history of type 2 diabetes mellitus Hypertension Family history of diabetes mellitus in first degree relative Family history of coronary artery disease Other Family history of throat cancer Social History Social History Smoking status: Never smoker Second hand tobacco smoke exposure: No Alcohol intake: never Substance use: never Substance use type: does not use Living arrangements: with family Occupation/Education: occupation Gender identity (if verbalized by the patient): Female Spiritual care concerns: No Anes - Eval Final PreProcedure Day of Procedure 07/24/23 08:18 Patient weight: overweight Heart: regular rate and rhythm Lungs: clear to auscultation Airway: Mallampati scale class II Neurological: alert and oriented Last oral intake: >/= 8 hours ASA classification: II Emergent: no Anesthetic plan: proceed Anesthesia type and monitoring: general GIVS and standard monitoring Results Review: All pre-operative results and documents have been reviewed as part of the pre-operative evaluation. Informed Consent: The patient's anesthetic plan and its attendant risks and benefits were discussed with the patient/family/POA. Questions were solicited and answers provided to the satisfaction of the patient/family/POA.
[2023-07-24 08:45] VITALS: BP 140/73; PULSE 74; RESP 20; TEMP 36.5; O2SAT 99
[2023-07-24] MEDS: LACTATED RINGERS 1,000 ML 30 ML IV CONT (09:10)
--- NOTE | 2023-07-24 10:03 | WPDHPUPDATE1 ---
History and Physical Update Update Date/Time: 07/24/23 10:03 History and Physical has been reviewed, including an updated exam of the patient. There are NO changes in the patient's condition. Risks, benefits, and alternatives have been discussed and questions answered. Patient agrees to proceed with procedure.
--- NOTE | 2023-07-24 10:04 | W.PM.PROC2 ---
Procedure Note - Detailed Date of Procedure 07/24/23 Pre-op Diagnosis osteophyte right foot Post-op Diagnosis Same Procedure Performed Exostectomy right 4th toe Surgeon Felix Aguilar DPM Anesthesia MAC Description of Procedure patient was brought the operating Room operating room placed on the operating table in supine position at this time intravenous anesthesia was induced patient was prepped draped usual sterile manner ankle tourniquet was inflated attention was directed to the dorsal lateral aspect of 4th toe right foot where this time utilizing a 15. Blade stab incision was made. The incision was deepened down to the level of the periosteal capsule layer which was undermined and retracted medially and laterally large exostosis was noted on the head of the proximal phalanx at its lateral aspect. At this time using a rotary bur the exostosis was removed in its entirety area was irrigated with sterile saline and 1 simple interrupted suture of 5 0 nylon to close the wound. Tourniquet was released vascular status noted to return to the right foot with normal pedal pulses good capillary filling time: Temperature of the digits should be pointed at this time the above-described procedures were performed under strict aseptic technique without proximal aseptic technique no throughout the entire procedure was dressed with sterile Adaptic 4x4s and Mikhail patient left the operating room for any signs stable vascular status intact in satisfactory condition. Patient was subsequently discharged with written and oral instructions. Condition Stable Disposition PACU
--- NOTE | 2023-07-24 10:22 | WPDHPUPDATE1 ---
History and Physical Update Update Date/Time: 07/24/23 10:22 History and Physical has been reviewed, including an updated exam of the patient. There are NO changes in the patient's condition. Risks, benefits, and alternatives have been discussed and questions answered. Patient agrees to proceed with procedure. Assessment & Plan (1) Exostosis: Code(s): M89.8X9 - Other specified disorders of bone, unspecified site Category: Medical Plan surgical attempt at correction right 4th toe Medications: Discontinued fluoxetine Discontinued Reason: Patient no longer taking 20 mg PO DAILY 90 caps 3RF Quality Smoking Status: Never smoker
[2023-07-24] MEDS: LIDOCAINE HCL 2% PF INJ 5 ML VIAL 3 ML INFILTRATE (10:43)
[2023-07-24 10:56] VITALS: BP 116/58; PULSE 68; RESP 14; O2SAT 100
[2023-07-24 11:25] VITALS: BP 98/53; PULSE 66; RESP 14; O2SAT 98
--- NOTE | 2023-07-24 12:14 | SUR.PHASEII ---
POST-OP SHOE PLACED TO RIGHT FOOT.
== END 2023-07-24 11:50 | disposition home or self-care (01) ==
PROVIDERS: PCP Family Medicine; Visit Provider Podiatrist Foot & Ankle Surgery
PROC: (CPT 28124; principal; 2023-07-24 10:30)
DX: M25.774 Osteophyte, right foot (principal); J45.909 Unspecified asthma, uncomplicated; F32.A Depression, unspecified; E78.5 Hyperlipidemia, unspecified; K21.9 Gastro-esophageal reflux disease without esophagitis; Z79.51 Long term (current) use of inhaled steroids; Z98.890 Other specified postprocedural states; Z80.3 Family history of malignant neoplasm of breast; Z80.1 Family history of malignant neoplasm of trachea, bronchus and lung; Z82.49 Family history of ischemic heart disease and other diseases of the circulatory system
CPT/HCPCS: 28124; J1100; J2250; J2405; J2704; J3010; J7120

== ENCOUNTER 2023-08-31 09:46 | Outpatient (CLI) | payer OTHER, SELFPAY ==
[2023-08-31 10:56] LABS: Vitamin D 25 Hydroxy 25.7 ng/mL
[2023-09-02 19:13] LABS: FSH 86.8 mIU/mL; LH 31.9 mIU/mL
== END 2023-08-31 09:47 | disposition home or self-care (01) ==
LOC: ANHOBOP 09:48
PROVIDERS: PCP Family Medicine; Visit Provider Nurse Practitioner
DX: N91.2 Amenorrhea, unspecified (principal); E55.9 Vitamin D deficiency, unspecified
CPT/HCPCS: 36415; 82306; 83001; 83002

== ENCOUNTER 2023-09-12 09:00 | Outpatient (CLI) | payer OTHER, SELFPAY ==
--- NOTE | ~2023-09-12 | DEXA_ITS ---
Bone Density Report Name: LESLY SOLIS Age: 53 Sex: Female Ethnicity: Date of : 1970 Indication: postmenopausal; screening for osteoporosis; history of glucocorticoids; asthma or emphysema; Referring Provider: Gareth, Lisa Study: Bone densitometry was performed. Exam Date: September 12, 2023 Accession number: [id number] Bone Density: Region BMD T-score Z-score Classification AP Spine (L1-L4) 0.997 -0.5 0.5 Normal Femoral Neck (Left) 0.804 -0.4 0.5 Normal Total Hip (Left) 0.879 -0.5 0.1 Normal Femoral Neck (Right) 0.810 -0.3 0.6 Normal Total Hip (Right) 0.876 -0.5 0.0 Normal Total Hip Mean 0.878 -0.5 0.1 Normal World Health Organization criteria for BMD impression classify patients as: Normal (T-score at or above -1.0), Osteopenia (T-score between -1.0 and -2.5), or Osteoporosis (T-score at or below -2.5). 10-year Fracture Risk: FRAX not reported because: All T-scores for Spine Total, Hip Total, Femoral Neck at or above -1.0 Previous Exams: Region Exam Age BMD T-score BMD Change BMD Change Date g/cm2 vs Baseline vs Previous AP Spine(L1-L4) 09/12/2023 53 0.997 -0.5 -0.060* -0.060* 04/19/2011 40 1.057 0.1 Total Hip(Left) 09/12/2023 53 0.879 -0.5 -0.003 -0.003 04/19/2011 40 0.882 -0.5 Total Hip(Right) 09/12/2023 53 0.876 -0.5 0.007 0.007 04/19/2011 40 0.869 -0.6 *Denotes significance at 95% confidence level, LSC for AP Spine = 0.022 g/cm2, LSC for Total Hip = 0.027 g/cm2 Clinical Information Provided by Patient: Has taken Glucocorticoids Has used the following medications: Vitamin D Has the following medical conditions: Asthma or Emphysema Patient maximum height was 63.5 Menopause Age: 48 No regular weight bearing exercise Drinks caffeinated beverages Onset of menses at age 16 Number of children 2 Impression: The patient has normal bone mass. The patient has risk factors, including: history of glucocorticoid therapy. The BMD for the AP Spine(L1-L4) decreased, changing by -0.060 since the last DXA exam. Discussion: BONE DENSITY IS ABOVE THE MINIMUM DESIRABLE LEVEL AT ALL SKELETAL SITES TESTED. This patient?s bone mineral density is above the minimum desirable level (T-score -1.0 or better) at all sites measured. The patient should follow a healthful lifestyle (good nutrition with adequate calcium and vitamin D, and appropriate weight-bearing exercise).
== END 2023-09-12 09:01 ==
PROVIDERS: PCP Nurse Practitioner; Visit Provider Nurse Practitioner
DX: Z78.0 Asymptomatic menopausal state (principal); Z13.820 Encounter for screening for osteoporosis
CPT/HCPCS: 77080

== ENCOUNTER 2023-09-24 16:05 | Emergency (ER) | payer OTHER, SELFPAY ==
[2023-09-24] VITALS (8 sets, daily range): BP systolic 137–171; BP diastolic 74–96; PULSE 59–87; RESP 12–15; O2SAT 100
--- NOTE | ~2023-09-24 | US_ITS ---
EXAMINATION: US venous doppler LE RT DATE: 09/24/2023 17:16 INDICATION: Right calf pain. TECHNIQUE: Grayscale ultrasound images without and with compression and Doppler ultrasound images of the right lower extremity veins were obtained. COMPARISON: None. FINDINGS: The visualized portions of right common femoral vein, profunda (deep) femoral vein, femoral vein, pop liteal vein, peroneal veins, posterior tibial veins, and greater saphenous vein outflow are patent. IMPRESSION: 1. No deep venous thrombosis. Reviewed, dictated and finalized at location E.
--- NOTE | ~2023-09-24 | XR_ITS ---
EXAMINATION: XR chest 2V DATE: 09/24/2023 16:38 INDICATION: Chest pain. Dizziness. Nausea. TECHNIQUE: Frontal and lateral views of the chest were obtained. COMPARISON: Chest 2 views 06/09/2014 FINDINGS: There is no pneumonia, pleural effusion, or pneumothorax. The heart size is normal. IMPRESSION: 1. No acute cardiopulmonary disease. Reviewed, dictated and finalized at location E.
--- NOTE | 2023-09-24 16:06 | ECG_ITS ---
SEE SCANNED COPY FOR CONFIRMED REPORT MTDD
--- NOTE | 2023-09-24 16:17 | ED.DIZZY ---
HPI - Dizziness General Chief Complaint: Dizziness Stated Complaint: dizzy, nauseated Time Seen by Provider: 09/24/23 16:17 History of Present Illness HPI Narrative: Patient is a 53 year old female with history of HTN, GERD, depression, asthma here with multiple symptoms including chest pain, shortness of breath, dizziness. Patient notes her chest pain has been present for the last 3 days, mid sternal, non radiating. She notes it has been associated with a tight feeling when she tries to take deep breaths, denies wheezing or coughing. She has noticed some right lateral calf pain, denies leg swelling. Today she was at work upstairs on labor and delivery when she began having some ear plugging sensation associated with dizziness described as room spinning. She had her who is a digital marketing assistant look in her ears noting nothing of significance to cause her hear discomfort. She notes she sat down and then felt as though she was very tired or may pass out. She did not pass out, did not fall to the floor. She has had some associated nausea. The majority of her symptoms have resolved at this time aside from some shortness of breath. No cardiac history. No history of PE/DVT. No prior stress test. Last surgery was a foot surgery about 2 months ago for a bone spur. No recent travel. Related Data Allergies Allergy/AdvReac Type Severity Reaction Status Date / Time No Known Allergies Allergy Verified 07/24/23 10:03 Review of Systems Review of Systems: All systems reviewed & are unremarkable except as noted in HPI and below PMFSH Past Medical History Medical History (Updated 09/24/23 @ 21:23 by Renee Holley MD) Asthma Depression Exostosis GERD (gastroesophageal reflux disease) GERD (gastroesophageal reflux disease) HLD (hyperlipidemia) Steatosis of liver Surgical History Surgical History (Updated 08/01/23 @ 07:32 by Sage Faulkner MD) H/O sinus surgery Hx of foot surgery R 4th toe Hx of reduction mammoplasty Status post delivery x 2 Family History Family History Grandparent Family history of malignant neoplasm of breast Mother Family history of malignant neoplasm of breast in first degree relative Hypertension Father Family history of type 2 diabetes mellitus Hypertension Family history of diabetes mellitus in first degree relative Family history of coronary artery disease Other Family history of throat cancer Social History Social History Smoking status: Never smoker Second hand tobacco smoke exposure: No Alcohol intake: never Substance use: never Substance use type: does not use Living arrangements: with family Occupation/Education: occupation Gender identity (if verbalized by the patient): Female Spiritual care concerns: No Exam Narrative: GENERAL: Well-appearing, well-nourished, and in no acute distress. HEAD: Normocephalic, atraumatic. EYES: PERRLA and EOMI. ENT: Nares clear. Mucous membranes moist. BL TM normal appearing. NECK: Supple. CHEST: Clear to auscultation. No respiratory distress. HEART: Regular rate and rhythm. Normal peripheral pulses. ABDOMEN: Soft, nontender, nondistended. EXTREMITIES: Normal range of motion. No edema. SKIN: Warm, dry, no rash. NEURO: No focal deficits. Alert and oriented x3. PSYCH: Normal mood and affect. Course Course Emergency Course: Chart review performed. Patient here with dizziness, nausea, vomiting, chest heaviness, ear fullness. Triage vitals show HTN, otherwise normal. Last PCP visit from 03/08/23 reviewed. Patient has noted history of HLD, GERD, depression. Patient seen evaluated, nontoxic appearing, currently only experiencing some shortness of breath. Given multitude of symptoms will do fairly broad workup including cardiac workup, d-dimer, RLE doppler. Patient agreeable to workup and plan. Lab wor
[2023-09-24 16:28] LABS: Basophils Percent Auto 0.3 % (0.2-1.2); Eosinophils Absolute Auto 0.1 K/mm3 (0-0.3); Eosinophils Percent Auto 1.6 % (0-4.4); Hematocrit 41.6 % (37.0-47.0); Hemoglobin 13.1 g/dL (12.0-15.0); Immature Granulocyte Absolute 0.01 K/mm3 (0.00-0.031); Immature Granulocyte Percent A 0.1 % (0-0.5); Lymphocytes Absolute Auto 3.95 K/mm3 (0.9-3.2); Lymphocytes Percent Auto 53.7 % (18.3-44.2); Mean Corpuscular HGB Conc 31.5 g/dl (32-36); Mean Corpuscular Hemoglobin 26.3 pg (26-34); Mean Corpuscular Volume 83.4 fl (80-100); Mean Platelet Volume 11.4 fl (7.4-10.4); Monocytes Absolute Auto 0.6 K/mm3 (0.1-0.6); Monocytes Percent Auto 7.8 % (2.6-8.5); Neutrophils Absolute Auto 2.7 K/mm3 (1.3-6.7); Neutrophils Percent Auto 36.5 % (45.5-73.1); Platelet Count Result 354 k/mm3 (150-375); Red Blood Count 4.99 M/mm3 (4.2-5.4); Red Cell Distribution Width 15.4 % (11.5-14.5); White Blood Count 7.4 K/mm3 (4.5-10.0)
[2023-09-24] MEDS: ONDANSETRON INJ 4 MG/2 ML VIAL IV PUSH (16:53)
[2023-09-24 17:51] LABS: Alanine Aminotransferase 62 U/L (6-35); Alkaline Phosphatase 90 U/L (38-126); Anion Gap 11 mmol/L (4-12); Aspartate Amino Transferase 62 U/L (14-36); Bilirubin,Total 0.5 mg/dL (0.2-1.3); Blood Urea Nitrogen 14 mg/dL (7-17); Calcium 10.5 mg/dL (8.4-10.2); Carbon Dioxide 29 mmol/L (22-30); Chloride 105 mmol/L (98-107); Estimated CRCL calculation 61 ml/min; Estimated Glomerular Filt Rate > 60; Glucose 85 mg/dL (65-110); Lipase 159 U/L (23-300); Potassium 3.4 mmol/L (3.4-5.0); Sodium 145 mmol/L (137-145)
[2023-09-24 17:57] LABS: Appearance Urine Clear (Clear); Bacteria Urine None Seen /hpf; Bilirubin Urine Negative (Negative); Blood Urine Negative (Negative); Color Urine Yellow (Yellow); Glucose Urine UA Negative (Negative); Ketones Urine Negative (Negative); Leukocyte Esterase Ur Trace LEU/UL (Negative); Nitrate Urine Negative (Negative); Non Pathogenic Casts 0-2; Protein Urine Negative (Negative); RBC Urine 0-2 /hpf (0-2); Squamous Epithelial Cell Urine None Seen /hpf (Few); Urobilinogen Urine 0.2 mg/dL (<2.0); WBC Urine 0-5 /hpf (0-3)
[2023-09-24 17:58] LABS: D Dimer 0.35 ug/mL (<0.48)
[2023-09-24 17:59] LABS: Add Urine Microscopic? YES; Specific Grav Ur 1.004 (1.001-1.035)
[2023-09-24 18:03] LABS: Troponin I < 0.012 ng/mL (0.000-0.034)
[2023-09-24 18:15] LABS: Influenza A QL RT-PCR Negative (Negative); Influenza B QL RT-PCR Negative (Negative); RSV RNA, RT-PCR Negative (Negative); SARS-CoV-2 RNA PCR Negative (Negative)
--- NOTE | 2023-09-24 20:43 | ECG_ITS ---
SEE SCANNED COPY FOR CONFIRMED REPORT MTDD
[2023-09-24 21:16] LABS: Troponin I < 0.012 ng/mL (0.000-0.034)
== END 2023-09-24 21:35 | disposition home or self-care (01) ==
PROVIDERS: Emergency Medicine; Emergency Provider Student in an Organized Health Care Education/Training Program; PCP Family Medicine
DX: R07.89 Other chest pain (principal); R55 Syncope and collapse; Z20.822 Contact with and (suspected) exposure to COVID-19; I10 Essential (primary) hypertension; E78.5 Hyperlipidemia, unspecified; J45.909 Unspecified asthma, uncomplicated; K21.9 Gastro-esophageal reflux disease without esophagitis
CPT/HCPCS: 36415; 71046; 80053; 81001; 83690; 84484; 85025; 85380; 87637; 93005; 93971; 96374; 99284; J2405

== ENCOUNTER 2023-10-25 08:12 | Outpatient (CLI) | payer OTHER, SELFPAY ==
--- NOTE | ~2023-10-25 | CT_ITS ---
EXAMINATION: CT brain & sinus wo con DATE: 10/25/2023 08:31 INDICATION: Headache TECHNIQUE: Computed tomography (CT) of the head and paranasal sinuses was performed without intraveno us contrast. Sagittal and coronal reconstructions were performed. Automated exposure control and iter ative reconstruction technique were employed. The dose-length product was 901.26 mGy-cm. COMPARISON: Sinus CT dated 10/07/[address] dated 08/09/2011 FINDINGS: No acute intracranial hemorrhage, acute infarction or abnormal extra axial fluid collection. Ventricl es are normal and symmetric. No mass/mass effect. Mastoid air cells and middle ear cavities are clear . The orbits are normal. There is probably mucus in the posterior most right ethmoid sinus. There is mucosal thickening in the left sphenoid sinus and at the right frontoethmoidal recess. Postoperative change of prior bilateral uncinectomies. Both ostiomeatal units remain patent with mild mucosal thick ening on the left. There is mild rightward bowing of the nasal septum. There is left middle turbinate melani bullosa. IMPRESSION: 1. Normal brain. No acute intracranial process. 2. Bubbly mucus in the posterior most right ethmoid air cell suggesting acute sinusitis. Reviewed, dictated and finalized at location A. IMPRESSION: 1. Normal brain. No acute intracranial process. 2. Bubbly mucus in the posterior most right ethmoid air cell suggesting acute s inusitis.
[2023-10-25 10:21] LABS: Folic Acid 16.3 ng/mL (2.76->20)
== END 2023-10-25 08:13 | disposition home or self-care (01) ==
LOC: ANHIMG 08:13
PROVIDERS: PCP Family Medicine; Visit Provider Family Medicine
DX: R53.83 Other fatigue (principal); R51.9 Headache, unspecified; J32.9 Chronic sinusitis, unspecified; R42 Dizziness and giddiness
CPT/HCPCS: 36415; 70450; 70486; 82607; 82746; 84439; 84443

== ENCOUNTER 2023-12-01 10:16 | Outpatient (CLI) | payer OTHER, SELFPAY ==
--- NOTE | ~2023-12-01 | MM_ITS ---
EXAMINATION: MM screening geovanna BI w ryanne HISTORY: Screening TECHNIQUE: Craniocaudal and mediolateral oblique 3-D tomosynthesis images were obtained and synthetic 2-D images were generated. CAD analysis was submitted and interpreted. COMPARISON: Comparison to multiple prior studies sequentially, with oldest reviewed study dated 07/04. BREAST PARENCHYMAL COMPOSITION: Not dense: There are scattered areas of fibroglandular density. FINDINGS: There is no evidence of suspicious mass, calcification, or architectural distortion to sugg est malignancy in either breast. There has been no suspicious interval change. IMPRESSION: 1. No mammographic evidence of malignancy. 2. Recommend routine screening mammography in one year. BI-RADS Category 1: Negative Reviewed, dictated and finalized at location B.
== END 2023-12-01 10:17 ==
LOC: MICIMG 10:17
PROVIDERS: PCP Family Medicine; Visit Provider Nurse Practitioner
DX: Z12.31 Encounter for screening mammogram for malignant neoplasm of breast (principal)
CPT/HCPCS: 77063; 77067

== ENCOUNTER 2024-07-30 07:52 | Emergency (ER) | payer OTHER, SELFPAY ==
[2024-07-30] VITALS (9 sets, daily range): BP systolic 130–180; BP diastolic 76–92; PULSE 58–71; RESP 13–18; O2SAT 100
--- NOTE | ~2024-07-30 | CT_ITS ---
CTA brain carotid Ordering provider: Chris Sewell PA-C History: . dizziness, vertigo, syncopal episode . Comparison: October 25, 2023 Technique: CT angiogram head and neck was performed following timed intravenous injection of contrast . Thin slice axial images and reformatted coronal images were obtained. Three dimensional reformatted images of the brain were also obtained using a [employer] workstation. Radiation reduction technique ut ilized.The dose-length product was 1312.75 mGy-cm. FINDINGS: HEAD: --ANTERIOR AND MIDDLE CEREBRAL ARTERIES AND BRANCHES: Normal caliber and contour. --INTERNAL CAROTID ARTERIES: no significant stenosis. No occlusion. --BASILAR ARTERY AND BRANCHES: Normal caliber and contour. No atheromatous disease. --POSTERIOR CEREBRAL ARTERIES: Normal caliber and contour --POSTERIOR COMMUNICATING ARTERIES: Both visualized with small size. --ANEURYSM: None visualized. --BRAIN: Normal for patient's age. --BONES AND SUPERFICIAL SOFT TISSUES: Normal --PARANASAL SINUSES AND MASTOIDS: Bilateral ethmoid sinus disease. Otherwise, Well aerated. Right mikey al septal deviation. NECK: --RIGHT CERVICAL CAROTID SYSTEM: Normal caliber and contour. Percent stenosis per NASCET criteria is 0%. No carotid dissection. Otherwise, no significant atheromatous disease or stenosis of the cervica l carotid system. --LEFT CERVICAL CAROTID SYSTEM: Normal caliber and contour. Percent stenosis per NASCET criteria is 0%. No carotid dissection. Otherwise, no significant atheromatous disease or stenosis of the cervical carotid system. --VERTEBRAL ARTERIES: Normal caliber and contour. --VISUALIZED AORTIC ARCH AND BRANCHING VESSELS: Normal caliber and contour. No significant atheromato us disease.0 --SOFT TISSUES: Normal. --CERVICAL SPINE: Age appropriate degenerative changes. IMPRESSION: 1. Normal CTA head and neck. Percent stenosis per NASCET criteria is 0%. Reviewed, dictated and finalized at location A.
--- NOTE | ~2024-07-30 | XR_ITS ---
Clinical Indication: Syncope PA and lateral views of the chest: Comparison: 09/24/2023 Findings: The lungs are clear, without evidence of focal consolidation or pleural effusion. Cardiome diastinal silhouette is within normal limits. Bones and soft tissues are unremarkable. Impression: Normal chest. Reviewed, dictated and finalized at [facility]. Impression: Normal chest.
--- NOTE | 2024-07-30 08:27 | ECG_ITS ---
Test Date: 2024-07-30 08:37:43 Measurements Intervals [place] Rate: 59 P: 19 LA: 142 QRS: 29 QRSD: 83 T: 50 QT: 414 QTc: 413 Interpretive Statements SINUS BRADYCARDIA LOW QRS VOLTAGE IN PRECORDIAL LEADS [QRS DEFLECTION < 1.0 mV IN CHEST LEADS] NONSPECIFIC T-WAVE ABNORMALITY No previous ECG available for comparison Electronically Signed On 07-30-2024 16:55:45 CDT by Samuel Sheridan M.D.
[2024-07-30 08:57] LABS: Basophils Percent Auto 0.4 % (0.2-1.2); Hematocrit 37.8 % (37.0-47.0); Hemoglobin 11.8 g/dL (12.0-15.0); Immature Granulocyte Absolute 0.01 K/mm3 (0.00-0.031); Immature Granulocyte Percent A 0.2 % (0-0.5); Lymphocytes Absolute Auto 2.23 K/mm3 (0.9-3.2); Lymphocytes Percent Auto 45.8 % (18.3-44.2); Mean Corpuscular HGB Conc 31.2 g/dl (32-36); Mean Corpuscular Hemoglobin 26.1 pg (26-34); Mean Corpuscular Volume 83.6 fl (80-100); Mean Platelet Volume 11.1 fl (7.4-10.4); Monocytes Absolute Auto 0.3 K/mm3 (0.1-0.6); Neutrophils Absolute Auto 2.3 K/mm3 (1.3-6.7); Neutrophils Percent Auto 47.6 % (45.5-73.1); Platelet Count Result 270 k/mm3 (150-375); Red Blood Count 4.52 M/mm3 (4.2-5.4); Red Cell Distribution Width 15.1 % (11.5-14.5); White Blood Count 4.9 K/mm3 (4.5-10.0)
[2024-07-30 09:26] LABS: Alanine Aminotransferase 65 U/L (6-35); Albumin Level 4.4 g/dL (3.5-5.1); Alkaline Phosphatase 73 U/L (38-126); Anion Gap 12 mmol/L (4-12); Aspartate Amino Transferase 53 U/L (14-36); Bilirubin,Total 0.5 mg/dL (0.2-1.3); Blood Urea Nitrogen 20 mg/dL (7-17); Calcium 9.7 mg/dL (8.4-10.2); Carbon Dioxide 26 mmol/L (22-30); Chloride 103 mmol/L (98-107); Estimated CRCL calculation 68 ml/min; Estimated Glomerular Filt Rate > 60; Glucose 107 mg/dL (65-110); Potassium 3.6 mmol/L (3.4-5.0); Sodium 141 mmol/L (137-145)
--- NOTE | 2024-07-30 09:40 | ED_ITS ---
HPI - Dizziness General Chief Complaint: Syncope Stated Complaint: syncope Time Seen by Provider: 07/30/24 09:02 Source: patient Mode of arrival: ambulatory Limitations: no limitations History of Present Illness HPI Narrative: This is a 53-year-old female with PMH of HLD, GERD, asthma who presents to the ED for chief complaint of syncopal episode occurring up work today. Patient states that she was sitting down ordered ask at the computer when this episode of dizziness/lightheadedness occurred today. States that she is not exactly sure what provoked the episode but does feel that she got extremely lightheaded and dizzy after either looking up or standing up today. Her co-worker was with her and reported that patient came to after a few seconds. Patient states that she has had these intermittent episodes for the past several weeks with dizziness lasts for few seconds and then will go away. She does feel that these episodes of vertigo are provoked by certain movements and usually go away quickly on their own. She describes it as vertigo with everything spinning. Patient does state that she has been worked up and treated by her primary care physician who has recently obtained brain and sinus CT scan which did show acute sinusitis. She has been on full of rounds of antibiotics and has follow-up with ENT soon for this. Denies associated numbness, weakness, chest pain, shortness of breath, cough, fevers, chills. Related Data Allergies Allergy/AdvReac Type Severity Reaction Status Date / Time No Known Allergies Allergy Verified 07/30/24 08:45 Review of Systems 2 Review of Systems: All systems as dictated in HPI [facility] Past Medical History Medical History (Updated 07/30/24 @ 11:35 by Chris Sewell PA-C) Achilles tendinitis of left lower extremity Exostosis Asthma GERD (gastroesophageal reflux disease) Depression GERD (gastroesophageal reflux disease) Steatosis of liver HLD (hyperlipidemia) Surgical History Surgical History Hx of foot surgery R 4th toe H/O sinus surgery Hx of reduction mammoplasty Status post delivery x 2 Family History Family History Grandparent Family history of malignant neoplasm of breast Mother Family history of malignant neoplasm of breast in first degree relative Hypertension Father Family history of type 2 diabetes mellitus Hypertension Family history of diabetes mellitus in first degree relative Family history of coronary artery disease Other Family history of throat cancer Social History Social History Smoking status: Never smoker Second hand tobacco smoke exposure: No Alcohol intake: never Substance use: never Substance use type: does not use Living arrangements: with family Occupation/Education: occupation Gender identity (if verbalized by the patient): Female Spiritual care concerns: No Exam 2 Narrative: GENERAL: Well-appearing, well-nourished, and in no acute distress. HEAD: Normocephalic, atraumatic. EYES: PERRLA and EOMI. ENT: Nares clear, no rhinorrhea or epistaxis. Mucous membranes moist. Oropharynx without tonsillar hypertrophy exudate or other lesions. NECK: Supple. No adenopathy or masses. CHEST: No respiratory distress. Clear to auscultation. No wheezes rales or rhonchi HEART: Regular rate and rhythm. No murmur heard. Normal peripheral pulses. ABDOMEN: Soft, nontender, nondistended, normal active bowel sounds. MSK: Normal range of motion. No edema. SKIN: Warm, dry, no rash. NEURO: Alert and oriented x4. No focal deficits. 5/5 strength sensation to the upper lower extremities. Negative pronator drift to upper and lower extremities. No dysarthria. No nystagmus at rest There is horizontal corrective saccade with head impulse test the right. Normal test of skew, no skew deviation PSYCH: Normal mood and affect. Course Vital Signs Vital signs: Vital Signs Pulse Rate 63 07/30/24 07:57 Respiratory Rate 16 07/30/24 07:57 Blood Pressure 180/84 H 07/30/24 07:57 Pulse Oximetry 100 07/30/24 07:57 Pulse Rate 61 07/30/24 10:35 Respiratory Rate 18 07/30/24 10:35 Blood Pressure 130/76 07/30/24 10:35 Pulse Oximetry 100 07/30/24 10:35 MDM - Dizziness MDM Narrative Medical decision making narrative: This is a 53-year-old female who presents to the ED for chief complaint of dizziness with possible syncopal episode today. She has been dealing with intermittent vertigo symptoms for the past several weeks in the setting of recurrent sinusitis. Vitals show elevated blood pressure on arrival but otherwise normal. Lab work is unremarkable overall. CTA head and neck shows normality. Chest x-ray is normal. EKG shows no ischemia. Overall presentation is consistent with likely peripheral vertigo based on physical exam. She has improved fluids, meclizine here. She feels comfortable with discharge home and follow-up with PCP/ENT on this issue. Patient will be discharged in stable condition. Supportive measures discussed and return precautions given. Patient is understanding and agreeable with plan for discharge with PCP follow-up. Lab Data 07/30/24 08:48 07/30/24 08:48 Labs: Lab Results 07/30/24 Range/Units 08:48 WBC 4.9 (4.5-10.0) K/mm3 RBC 4.52 (4.2-5.4) M/mm3 Hgb 11.8 L (12.0-15.0) g/dL Hct 37.8 (37.0-47.0) % MCV 83.6 (80-100) fl MCH 26.1 (26-34) pg MCHC 31.2 L (32-36) g/dl RDW 15.1 H (11.5-14.5) % Plt Count 270 (150-375) k/mm3 MPV 11.1 H (7.4-10.4) fl Immature Gran % (Auto) 0.2 (0-0.5) % Neut % (Auto) 47.6 (45.5-73.1) % Lymph % (Auto) 45.8 H (18.3-44.2) % [place] % (Auto) 6.0 (2.6-8.5) % Eos % (Auto) 0.0 (0-4.4) % Baso % (Auto) 0.4 (0.2-1.2) % Lymph # (Auto) 2.23 (0.9-3.2) K/mm3 [place] # (Auto) 0.3 (0.1-0.6) K/mm3 Eos # (Auto) 0.0 (0-0.3) K/mm3 Baso # (Auto) 0.0 (0.0-0.1) K/mm3 Abs Immat Gran (auto) 0.01 (0.00-0.031) K/mm3 Absolute Neuts (auto) 2.3 (1.3-6.7) K/mm3 Absolute Nucleated RBC 0.000 (0.0-0.012) K/mm3 Nucleated RBC % 0.0 (0.0-0.2) % Sodium 141 (137-145) mmol/L Potassium 3.6 (3.4-5.0) mmol/L Chloride 103 (98-107) mmol/L Carbon Dioxide 26 (22-30) mmol/L Anion Gap 12 (4-12) mmol/L BUN 20 H (7-17) mg/dL Creatinine 0.79 (0.7-1.0) mg/dL Estim Creat Clear Calc 68 ml/min Estimated GFR > 60 (59 - ) Glucose 107 (65-110) mg/dL Calcium 9.7 (8.4-10.2) mg/dL Total Bilirubin 0.5 (0.2-1.3) mg/dL AST 53 H (14-36) U/L ALT 65 H (6-35) U/L Alkaline Phosphatase 73 (38-126) U/L Total Protein 8.0 (6.3-8.2) g/dL Albumin 4.4 (3.5-5.1) g/dL Discharge Plan Discharge Clinical Impression: Episodic peripheral vertigo Patient Disposition: Home, Self-Care Condition: Stable Instructions: Antibiotic Form, Benign Paroxysmal Positional Vertigo (ED) Additional Instructions: Your exam and imaging today are reassuring overall. Please take meclizine as needed for dizziness and follow-up closely with ENT. If you have any new or worsening symptoms please return to the ER for further evaluation. Patient Language: [place] Prescriptions: No Action albuterol sulfate [ProAir HFA] 90 mcg/actuation HFA aerosol inhaler 1 inh inhalation Q4H PRN (Reason: shortness of breath or wheezing) Qty: 8.5 2RF cefuroxime axetil 500 mg tablet 500 mg PO Q12H Qty: 20 0RF omeprazole 40 mg capsule,delayed release(DR/EC) 40 mg PO DAILY Qty: 30 5RF fluoxetine 20 mg tablet 20 mg PO DAILY Qty: 90 3RF Follow-up/Referrals: Sage Faulkner MD [Primary Care Provider] - Time of Disposition: 11:35
[2024-07-30] MEDS: MECLIZINE HCL 25 MG TABLET PO (09:58)
[2024-07-30] MEDS: SODIUM CHLORIDE 0.9% IV 1,000 ML 999 ML IV CONT (09:59)
--- OUTSIDE RECORDS SUMMARY | 2024-07-30 10:06 | XMS_ITS | Continuity of Care Document ---
Author Organization [facility] Address [id number] [place] [address] [address] [place] [address] Phone Care Team Providers Care Food Mobile Driver Name Role Phone Caba OD, Maximo Unavailable Unavailable Advance Directives Directive Yes / No Effective Date File Name No Information Encounters Encounter Description Practice Location Reason(s) For Visit Diagnoses Date Provider Providers Copied on Encounter [facility], [address], [place], [place], [id number], [place] tel:[phone] [facility] No Information 0 2-200 3 Caba OD Maximo. [address] , [address], [place], [address], [place]. tel:[phone] Family History Family Member Type Diagnosis Age At Onset No Information Payers Payer name Insurance type Covered alliance party ID Authoriza tion(s) No Information Social History Type Description Quantity Date Captured Comments Sex Female Smoking Status No Information Chief Complaint And Reason For Visit No Information Reason For Referral Reason For Referral No Information History Of Present Illness Encounter Date Complaint History Of Prese nt Illness No Information Functional Status Date Functional Assessmen t No Information Instructions Date Instruction Additional Infor mation No Information Assessments Type Assessment Date No Information Patient Care Teams Name Effective Dates (start - stop) Status Members No Information
--- NOTE | 2024-07-30 10:13 | ECG_ITS ---
Test Date: 2024-07-30 10:30:45 Measurements Intervals [place] Rate: 58 P: 51 IN: 138 QRS: 51 QRSD: 81 T: 46 QT: 432 QTc: 427 Interpretive Statements SINUS BRADYCARDIA LOW QRS VOLTAGE IN PRECORDIAL LEADS [QRS DEFLECTION < 1.0 mV IN CHEST LEADS] NONSPECIFIC T-WAVE ABNORMALITY ABNORMAL ECG Electronically Signed On 07-31-2024 12:03:55 CDT by Filiberto Couch M.D.
== END 2024-07-30 11:54 | disposition home or self-care (01) ==
PROVIDERS: Student in an Organized Health Care Education/Training Program; Emergency Provider Physician Assistant; PCP Family Medicine
DX: H81.399 Other peripheral vertigo, unspecified ear (principal); E78.5 Hyperlipidemia, unspecified; J45.909 Unspecified asthma, uncomplicated; K21.9 Gastro-esophageal reflux disease without esophagitis; F32.A Depression, unspecified; Z79.899 Other long term (current) drug therapy; R00.1 Bradycardia, unspecified; R94.31 Abnormal electrocardiogram [ECG] [EKG]
CPT/HCPCS: 36415; 70496; 70498; 71046; 80053; 85025; 93005; 96360; 99284; A9270; J7030; Q9967

== ENCOUNTER 2024-10-24 10:50 | Outpatient (CLI) | payer OTHER, SELFPAY ==
[2024-10-24 11:21] LABS: Anion Gap 11 mmol/L (4-12); Blood Urea Nitrogen 13 mg/dL (7-17); Calcium 9.8 mg/dL (8.4-10.2); Carbon Dioxide 30 mmol/L (22-30); Chloride 100 mmol/L (98-107); Estimated Glomerular Filt Rate 55; Glucose 102 mg/dL (65-110); Potassium 3.4 mmol/L (3.4-5.0); Sodium 141 mmol/L (137-145)
--- OUTSIDE RECORDS SUMMARY | 2024-10-24 11:45 | XMS_ITS | Continuity of Care Document ---
Author Organization [facility] Address [id number] [place] [address] [address] [place] [address] Phone Care Team Providers Care Marketing Database Coordinator Name Role Phone Caba OD, Maximo Unavailable Unavailable Advance Directives Directive Yes / No Effective Date File Name No Information Encounters Encounter Description Practice Location Reason(s) For Visit Diagnoses Date Provider Providers Copied on Encounter [facility], [address], [place], [place], [id number], [place] tel:[phone] [facility] No Information 0 2-200 3 Caba OD Maximo. [address] , [address], [place], [address], [place]. tel:[phone] Family History Family Member Type Diagnosis Age At Onset No Information Payers Payer name Insurance type Covered green party ID Authoriza tion(s) No Information Social [...]
== END 2024-10-24 10:51 | disposition home or self-care (01) ==
LOC: ANHLAB 10:51
PROVIDERS: PCP Family Medicine; Visit Provider Anesthesiology
DX: Z01.818 Encounter for other preprocedural examination (principal); Z79.899 Other long term (current) drug therapy
CPT/HCPCS: 36415; 80048

== ENCOUNTER 2024-10-28 01:58 | Day surgery (SDC) | payer OTHER, SELFPAY ==
[2024-10-18 15:31] VITALS: BMI 29.2
--- NOTE | 2024-10-18 15:51 | PC.NURSE ---
Report to the Outpatient Waiting Room, entrance under the green pavilion located off [facility], at time ___6:00AM____ on date ___10/28/24____. Planned Procedure Time: ___7:30AM .? Time changes happen often and if your time is changed the preop area will call you the afternoon before. - You and your visitor will be asked to self-screen and do not enter if you have any COVID symptoms. Please call surgeon if you need to reschedule. - A mask is optional within the hospital at this time. Patients may have clear liquids (water, carbonated beverages, clear teas, apple juice) until 3 hours prior to surgery (4:30AM) with a maximum of 20 ounces. - No food from midnight until time of surgery and no smoking, or chewing tobacco (or any form of nicotine). No chewing gum, candy or mints. Take only the following medications with a SIP of water on the morning of surgery: ___INHALER NEEDED DO NOT STOP ANY OF YOUR OTHER PRESCRIPTION MEDICATIONS PRIOR TO SURGERY EXCEPT THE FOLLOWING Hold all vitamins and supplements for 3 days per anesthesiologist. Medications to discontinue per physician NONE Date to take last dose Please no make-up, nail costa rican, hairspray, perfume, deodorant, or body powder the day of surgery.? No jewelry (including any body piercings) or valuables the day of surgery, leave them at home.? Please take a shower or bath the night before, or the morning of, surgery with an antibacterial soap.? Wear comfortable, loose fitting clothing.? - Jewelry must be removed prior to entering the operating room.? Rings and piercings that are not removed may be cut off. - The hospital will not accept responsibility for valuables.? - Please leave all valuables, including medications, at home the day of surgery. If you are going home after surgery, a licensed straight truck driver must drive you home.? - NO public transportation without another adult if you receive anesthesia. - We recommend that an adult stay with you for 24 hours following discharge. - We also recommend that you do not drive, make important decision, drink alcoholic beverages, or take any drugs that were not prescribed by your health care provider for at least 24 hours after your discharge time. Follow any additional instructions given to you from your surgeon. Telephone instructions given to ___PATIENT and asked if any additional questions and then verbalized understanding. Patient advised to call surgeon office or pre surgery nurse liaison [phone] if any additional questions.
[2024-10-28] VITALS (9 sets, daily range): BP systolic 101–140; BP diastolic 55–79; PULSE 70–81; RESP 12; TEMP 36.1–36.6; O2SAT 95–100; BMI 29.0
--- OUTSIDE RECORDS SUMMARY | 2024-10-28 02:02 | XMS_ITS | Continuity of Care Document ---
Author Organization [facility] Address [id number] [place] [address] [address] [place] [address] Phone Care Team Providers Care Sheet Mill Supervisor Name Role Phone Caba OD, Maximo Unavailable Unavailable Advance Directives Directive Yes / No Effective Date File Name No Information Encounters Encounter Description Practice Location Reason(s) For Visit Diagnoses Date Provider Providers Copied on Encounter [facility], [address], [place], [place], [id number], [place] tel:[phone] [facility] No Information 0 2-200 3 Caba OD Maximo. [address] , [address], [place], [address], [place]. tel:[phone] Family History Family Member Type Diagnosis Age At Onset No Information Payers Payer name Insurance type Covered republican ID Authoriza tion(s) No Information Social History [...]
[2024-10-28] MEDS: LACTATED RINGERS 1,000 ML 30 ML IV CONT ×2 (06:30→08:56)
[2024-10-28] MEDS: OXYMETAZOLINE HCL 0.05% NAS 15 ML BTL (*BKC) 1 SPRAY NASAL (06:30)
[2024-10-28] MEDS: ACETAMINOPHEN 500 MG TABLET 1000 MG PO (06:30)
--- NOTE | 2024-10-28 06:46 | WPDANESEPPF ---
Anes - Initial Pre Proc Eval Procedure: Operation Date: 10/28/24 07:30 Proposed Procedures p Fusion Guided Bilateral Frontal Sinusotomy, Bilateral Ethmoidectomy, Bilateral Sphenoidotomy, Bilateral Turbinate Outfracture - Mauro Mc MD Date/Time: 10/28/24 06:46 Surgeon: Mauro Mc MD Pre Op Diagnosis: chronic sinusitis, turbinate hypertrophy Patient Data Age: 54 Gender: F Height: 1.6 m Weight: 75 kg Allergies Allergy/AdvReac Type Severity Reaction Status Date / Time No Known Allergies Allergy Verified 10/18/24 15:29 Home Medications ?Medication ?Instructions ?Recorded ?Confirmed ?Type albuterol sulfate 90 mcg/actuation 1 inh inhalation Q4H PRN shortness 04/07/20 10/18/24 Rx aerosol inhaler (ProAir HFA) of breath or wheezing #8.5 grams hydrochlorothiazide 12.5 mg capsule 12.5 mg PO DAILY #30 caps 08/27/24 10/18/24 Rx fluoxetine 20 mg capsule 20 mg PO DAILY #90 caps 08/28/24 10/18/24 Rx omeprazole 20 mg capsule,delayed 20 mg PO HS 10/18/24 10/18/24 History release Patient hx anesthesia problems: none Family hx anesthesia problems: none Results Review: All pre-operative results and documents have been reviewed as part of the pre-operative evaluation. [facility] Past Medical History Medical History (Updated 08/27/24 @ 14:32 by Danelle Kinney PA-C) Achilles tendinitis of left lower extremity Exostosis Asthma GERD (gastroesophageal reflux disease) Depression GERD (gastroesophageal reflux disease) Steatosis of liver HLD (hyperlipidemia) Surgical History Surgical History Hx of foot surgery R 4th toe H/O sinus surgery Hx of reduction mammoplasty Status post delivery x 2 Family History Family History Grandparent Family history of malignant neoplasm of breast Mother Family history of malignant neoplasm of breast in first degree relative Hypertension Father Family history of type 2 diabetes mellitus Hypertension Family history of diabetes mellitus in first degree relative Family history of coronary artery disease Other Family history of throat cancer Social History Social History (Updated 08/27/24 @ 13:29 by Yessica Nath Social History: Smoking status: Never smoker Second hand tobacco smoke exposure: No Alcohol intake: never Substance use: never Substance use type: does not use Do You Feel Safe in your Home?: Yes Lack of Transportation: No Lack of Food: Never True Current Housing: I Have Housing Concerned About Future Housing: No Difficulty Paying Gas/Electric Bills: No Difficulty Paying for Meds: No Currently Unemployed: No Education: Don't Know Difficulty w/ Childcare or Family Care: No Living arrangements: with family Additional living arrangements comments: HUSB AND SON Occupation/Education: occupation Gender identity (if verbalized by the patient): Female Sexual Orientation (if Verbalized by the Patient): Straight or Heterosexual Spiritual care concerns: No Anes - Eval Final PreProcedure Day of Procedure 10/28/24 06:46 Patient weight: overweight Heart: regular rate and rhythm Lungs: clear to auscultation Airway: Mallampati scale class III Neurological: alert and oriented Last oral intake: >/= 8 hours ASA classification: II Emergent: no Anesthetic plan: proceed Anesthesia type and monitoring: general ETT and standard monitoring Results Review: All pre-operative results and documents have been reviewed as part of the pre-operative evaluation. Informed Consent: The patient's anesthetic plan and its attendant risks and benefits were discussed with the patient/family/POA. Questions were solicited and answers provided to the satisfaction of the patient/family/POA.
--- NOTE | 2024-10-28 07:08 | PM.IMHP ---
H&P: HPI History of Present Illness Date/Time: 10/28/24 07:08 Chief Complaint: chronic sinusitis Review of Systems Review of Systems: All systems reviewed & are unremarkable except as noted in HPI and below PMFSH Past Medical History Medical History Achilles tendinitis of left lower extremity Exostosis Asthma GERD (gastroesophageal reflux disease) Depression GERD (gastroesophageal reflux disease) Steatosis of liver HLD (hyperlipidemia) Surgical History Surgical History Hx of foot surgery R 4th toe H/O sinus surgery Hx of reduction mammoplasty Status post delivery x 2 Family History Family History Grandparent Family history of malignant neoplasm of breast Mother Family history of malignant neoplasm of breast in first degree relative Hypertension Father Family history of type 2 diabetes mellitus Hypertension Family history of diabetes mellitus in first degree relative Family history of coronary artery disease Other Family history of throat cancer Social History Social History Social History: Smoking status: Never smoker Second hand tobacco smoke exposure: No Alcohol intake: never Substance use: never Substance use type: does not use Do You Feel Safe in your Home?: Yes Lack of Transportation: No Lack of Food: Never True Current Housing: I Have Housing Concerned About Future Housing: No Difficulty Paying Gas/Electric Bills: No Difficulty Paying for Meds: No Currently Unemployed: No Education: Don't Know Difficulty w/ Childcare or Family Care: No Living arrangements: with family Additional living arrangements comments: HUSB AND SON Occupation/Education: occupation Gender identity (if verbalized by the patient): Female Sexual Orientation (if Verbalized by the Patient): Straight or Heterosexual Spiritual care concerns: No Meds Home Medications and Allergies Home Medications ?Medication ?Instructions ?Recorded ?Confirmed ?Type albuterol sulfate 90 mcg/actuation 1 inh inhalation Q4H PRN shortness 04/07/20 10/18/24 Rx aerosol inhaler (ProAir HFA) of breath or wheezing #8.5 grams hydrochlorothiazide 12.5 mg capsule 12.5 mg PO DAILY #30 caps 08/27/24 10/18/24 Rx fluoxetine 20 mg capsule 20 mg PO DAILY #90 caps 08/28/24 10/18/24 Rx omeprazole 20 mg capsule,delayed 20 mg PO HS 10/18/24 10/18/24 History release Allergies Allergy/AdvReac Type Severity Reaction Status Date / Time No Known Allergies Allergy Verified 10/18/24 15:29 Exam Narrative: chronic sinusitis, rest of exam wnl Assessment and Plan Assessment and plan (1) Chronic sinusitis: Code(s): J32.9 - Chronic sinusitis, unspecified Status: Acute Assessment and Plan: Chronic sinusitis Plan History of previous sinus surgery with persistent headaches, vertigo. Imaging showed chronic frontal, sphenoid and ethmoid disease. Here for revision surgery. r/b/a reviewed, all questions answered, pt understands and agrees to proceed. refer to outpt H&P for further details.
--- NOTE | 2024-10-28 07:11 | WPDHPUPDATE1 ---
History and Physical Update Update Date/Time: 10/28/24 07:11 History and Physical has been reviewed, including an updated exam of the patient. There are NO changes in the patient's condition. Risks, benefits, and alternatives have been discussed and questions answered. Patient agrees to proceed with procedure.
[2024-10-28] MEDS: LIDO 1%/EPINEPHRINE 1:100,000 50 ML VIAL 20 ML INFILTRATE (07:34)
[2024-10-28] MEDS: ceFAZolin 2 GM/D5W 50 ML 2 GM/50 ML BAG IVPB (07:36)
--- NOTE | 2024-10-28 09:06 | P.OP_ITS ---
Procedure Note - Detailed Date of Procedure 10/28/24 Pre-op Diagnosis chronic sinusitis, turbinate hypertrophy Post-op Diagnosis Same Procedure Performed Bilateral frontal sinusotomy, total ethmoidectomy, sphenoidotomy, turbinate outfracture, image guided Surgeon Mauro Mc MD Anesthesia General Indications Chronic sinusitis Findings Right posterior ethmoid and left sphenoid inspissated mucous present. Nasopore bilaterally. Description of Procedure On the date of procedure the patient was met in the preoperative area and risk and benefits of the procedure reviewed with the patient as documented in the H&P and they elected to proceed with surgery. Patient was brought back to the operating room by the anesthesia team and underwent general endotracheal anesthesia. Once an adequate plane of anesthesia was obtained a timeout was performed to assure the patient identification the patient here to be performed were correct. They were.The patient was then prepped and draped in the normal fashion for endoscopic sinus surgery. The diffusion image guidance system was calibrated and used for the entire case. Afrin-soaked pledgets were placed in the nasal cavities bilaterally. The entire case was performed under endoscopic visualization. Nasal endoscopy was performed at the beginning of the case. 1% lidocaine with 1:100,000 epinephrine was then injected into the root of the middle turbinate and lateral nasal wall. Attention was first directed towards the right side. The middle turbinate was medialized. Continuing with the microdebrider, the anterior ethmoid bulla was opened. Careful dissection was carried out posteriorly, through the basal lamella and posterior ethmoid cells until the sphenoid rostrum was identified. Thick mucous removed from right posterior ethmoid. A Jeovany suction bluntly identified the sphenoid os and the opening was widened with microdebrider and mushroom punch to 5mm. Using an image guided curved suction as well as J- curette, the posterior most ethmoid cell was identified and the ethmoids were bluntly fractured and dissected from posterior to anterior along the base of the skull. The remaining bone fragments were removed with appropriate curved instruments and microdebrider. Next, The left ethmoidectomy and sphenoidotomy were carried out in identical fashion with findings of thick inspissated mucous in left sphenoid. Upon completion of these portions of the procedure, attention was returned to the right side and the frontal recess was identified. Image guided seeker confirmed proper identification of the frontal recess. With all sinuses opened and no remaining infection appreciated, nasopore packing was placed in the ethmoid cavities bilaterally. Hemostasis was ensured. Lastly, the bilateral inferior turbinates were outfractured with freer elevator. This significantly opened the airway. At this point, the procedure was concluded. Care the patient was transferred back to the anesthesia team and the patient was awoke in the operating room and transferred back to the PACU in stable condition. Mauro Mc M.D. Estimated Blood Loss 20 Drains No Packing Yes (nasopore) Pathology None sent Complications No immediate complications Condition Stable Disposition PACU
== END 2024-10-28 10:57 | disposition home or self-care (01) ==
PROVIDERS: PCP Family Medicine; Visit Provider Otolaryngology
PROC: (CPT 31257; principal; 2024-10-28 07:30)
DX: J32.9 Chronic sinusitis, unspecified (principal); J34.3 Hypertrophy of nasal turbinates
CPT/HCPCS: 31257; 31276; 61782; 30930; A9270; J0690; J1100; J1171; J2003; J2004; J2250; J2405; J2704; J3010; J7030; J7120

== ENCOUNTER 2024-12-03 10:33 | Outpatient (CLI) | payer OTHER, SELFPAY ==
--- NOTE | ~2024-12-03 | MM_ITS ---
EXAMINATION: MM screening geovanna BI w ryanne HISTORY: Screening TECHNIQUE: Craniocaudal and mediolateral oblique 3-D tomosynthesis images were obtained and synthetic 2-D images were generated. CAD analysis was submitted and interpreted. COMPARISON: Comparison to multiple prior studies sequentially, with oldest reviewed study dated 07/29. BREAST PARENCHYMAL COMPOSITION: The breasts are almost entirely fatty. FINDINGS: There is no evidence of suspicious mass, calcification, or architectural distortion to sug gest malignancy in either breast. IMPRESSION: 1. No mammographic evidence of malignancy. 2. Recommend routine screening mammography in one year. BI-RADS Category 1: Negative Reviewed, dictated and finalized at location B.
== END 2024-12-03 10:34 | disposition home or self-care (01) ==
LOC: MICIMG 10:34
PROVIDERS: PCP Family Medicine; Visit Provider Obstetrics & Gynecology Gynecology
DX: Z12.31 Encounter for screening mammogram for malignant neoplasm of breast (principal)
CPT/HCPCS: 77063; 77067

== ENCOUNTER 2025-05-05 09:00 | Outpatient (RCR) | payer OTHER, SELFPAY ==
--- NOTE | 2025-03-19 09:47 | OPREHPOC ---
Outpatient Therapy Plan of Care This is a Multidisciplinary Plan of Care that may contain components documented by all disciplines (PT, OT, and ST.) PT Problem 1 PT Problem #1 Knowledge Deficit PT Goal 1 Goal / Goal Update *independent with HEP Target Visit 8 PT Problem 2 PT Problem #2 Impaired Vestibular System PT Goal 1 Goal / Goal Update improve vestibular system: pt able to perform without any symptoms: 1* rolling in bed 2* supine/sit transfer 3* bend down and touch the floor 4* pt walk 50' with 3 head turns each to R and L Target Visit 8
--- NOTE | 2025-03-19 09:47 | PTOPEVAL1 ---
Assessment and note entered by Darline Howard, PT Evaluation Information Assessment Status Evaluation ICD-10 Condition Codes (PT) Dizziness and Giddiness R42,BPPV H81.12 Onset about 1 year Subjective Information history of vertigo, 3-4x/year, lasting about 1 day and treat with meclazine and go away; have cleared some issues with having sinus surgery - decreased headaches; blood pressure good and on meds. have reading glasses, had lasix surgery have had dizziness with sinus infections in the past and this is different; take meclazine PRN with prolonged dizziness; after take meclazine have to go to bed and lie down; symptoms/issues: veering when walk, perceive that I am in a tunnel, looking down stairs is a problem, cannot turn head and talk to someone walking beside her; turn over in bed, bend over to get something out of a cabinet. 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 Dizziness Handicap Index rating of 52% limitation in activity. History of chronic issues with vertigo, but recently more often and last longer. She is using meclazine PRN and dizziness limits her activity. She had sinus surgery clear out in September 2024 and septal deviation surgery; headaches, neck pain, sinus infections and ear infections. With the evaluation, testing for anterior/ posterior canal was positive on R; cleared with [employer]ply to R; education to pt. Skilled PT services are indicated for vestibular therapy and BPPV treatment, with education for HEP and safety with mobility. Plan of Care Interventions Neuro Re-education,Patient/Caregiver Education, Therapeutic Activities,Therapeutic Exercise PT Services Indicated Yes Treatment Frequency and 1-2x/wk for 8 visits Duration These treatments will address the objective and functional deficits as defined above. The patient will be advanced safely and appropriately in order for the patient to progress towards his/her prior level of function. Additional exercises will be introduced and as well as a comprehensive home exercise program upon discharge, if needed, ?to ensure carryover of functional gains achieved in the clinic. This treatment plan has been reviewed and agreement upon by the patient.
--- NOTE | 2025-05-05 09:43 | OPREHPOC ---
Outpatient Therapy Plan of Care This is a Multidisciplinary Plan of Care that may contain components documented by all disciplines (PT, OT, and ST.) PT Problem 1 PT Problem #1 Knowledge Deficit PT Goal 1 Goal / Goal Update *independent with HEP 05-05-25 d/c goal met Target Visit 8 Progress Met PT Problem 2 PT Problem #2 Impaired Vestibular System PT Goal 1 Goal / Goal Update improve vestibular system: pt able to perform without any symptoms: 1* rolling in bed 2* supine/sit transfer 3* bend down and touch the floor 4* pt walk 50' with 3 head turns each to R and L 05-05-25 d/c goals met Target Visit 8 Progress Met
--- NOTE | 2025-05-05 09:43 | PTOPDC ---
Assessment and note entered by Darline Howard, PT Assessment Status Discharge ICD-10 Condition Codes (PT) Dizziness and Giddiness R42,BPPV H81.12 Onset about 1 year Subjective Information doing much better, have not had any spinning or vertigo for over 2 weeks; have little funny feeling with quick head motions and bending over; do not even think about how I am moving or afraid of causing dizziness anymore; Reported Pain Level Pain Score 4: Self Report Additional Pain Score Comments R side of neck and upper traps hurt; have a chronic issue with R neck and upper traps pain-- need to see dr about it. Assessment PT Clinical Summary Reji has received 6 PT sessions. With today's assessment: she no longer has the spinning and vertigo; the only activity that caused any issues was unsteady with standing 360' turn to L; she does report cervical pain and tightness over R upper traps; education completed for HEP, posture, vertigo. The goals were achieved. Discharge PT services. She is to continue with posture correction, HEP. Plan of Care PT Services Indicated No
== END 2025-05-06 16:20 | disposition home or self-care (01) ==
LOC: ANHPT 09:00
PROVIDERS: PCP Family Medicine; Visit Provider Otolaryngology
DX: H81.11 Benign paroxysmal vertigo, right ear (principal)
CPT/HCPCS: 95992; 97110; 97112; 97140; 97161; 97530